=== PATIENT | male | born 1985 | race Caucasian/White ===

== ENCOUNTER 2021-08-28 19:21 | Inpatient (IN) | payer OTHER ==
[~2021-08-28] VITALS: Ht 165.1 cm; Wt 59.0 kg
--- NOTE | 2021-08-28 19:25 | NUR ---
pt bib ra from home pt states he has abd pain and high blood sugar.
--- NOTE | 2021-08-28 19:29 | NUR ---
Dr. Dawson at bedside for MSE.
[2021-08-28] MEDS ORDERED: IV NORMAL SALINE 1000 ML BAG IV ONE (19:30)
[2021-08-28] MEDS ORDERED: PANT40TA2 PO (19:34)
[2021-08-28] MEDS ORDERED: OXYC-128 PO (19:34)
[2021-08-28] MEDS ORDERED: INSU100C (19:34)
[2021-08-28] MEDS ORDERED: SWABABLE VALVE TRANSFER SET EA MC ONE (19:41)
[2021-08-28] MEDS ORDERED: IV NORMAL SALINE 250 ML IV ONE (19:41)
[2021-08-28] MEDS ORDERED: IOHEXOL 300MG/ML 100 ML INFUS..BTL ONE (19:41)
[2021-08-28] MEDS ORDERED: HYDROMORPHONE HCL 2 MG TABLET ONE (19:44)
[2021-08-28] MEDS ORDERED: diphenhydrAMINE 50 MG/1 ML VIAL ONE (19:44)
[2021-08-28] MEDS ORDERED: METOCLOPRAMIDE HCL 10 MG/2 ML VIAL ONE (19:44)
[2021-08-28] MEDS ORDERED: diphenhydrAMINE 50 MG/1 ML VIAL IV ONE (19:45)
[2021-08-28] MEDS ORDERED: HYDROMORPHONE HCL 2 MG TABLET PO ONE (19:45)
[2021-08-28] MEDS ORDERED: METOCLOPRAMIDE HCL 10 MG/2 ML VIAL IV ONE (19:45)
[2021-08-28 19:58] LABS: HEMATOCRIT 51.4 % (36.7-47.1); MEAN CORPUSCULAR HEMOGLOBIN 27.7 uug (23.8-33.4); MEAN CORPUSCULAR VOLUME 81.8 fL (73.0-96.2); PLATELET COUNT (AUTO) 325 K/uL (152-348)
--- NOTE | 2021-08-28 19:58 | NUR ---
pt called gave update on pt.
--- NOTE | 2021-08-28 20:06 | NUR ---
pt taken for cat scan.
[2021-08-28 20:18] LABS: BILIRUBIN,DIRECT 0.5 mg/dL (0.0-0.2); BILIRUBIN,TOTAL 2.5 mg/dL (0.2-1.0); CREATININE 1.5 mg/dL (0.6-1.3); POTASSIUM 4.6 mmol/L (3.5-5.1); TOTAL PROTEIN, SERUM 8.8 g/dL (6.4-8.2)
--- NOTE | 2021-08-28 20:28 | NUR ---
pt returned from cat scan.
[2021-08-28] MEDS ORDERED: INSULIN REGULAR, HUMAN 100 UNIT in IV NORMAL SALINE 99 ML IV PRN ×8 (20:30→23:30)
[2021-08-28] MEDS ORDERED: POTASSIUM CHLORIDE 20 MEQ TAB.PRT.SR PO ONE (20:30)
[2021-08-28] MEDS ORDERED: INSULIN REGULAR, HUMAN 300 UNIT/3 ML VIAL IV ONE (20:30)
[2021-08-28 20:35] LABS: AMYLASE 53 U/L (25-115)
--- NOTE | 2021-08-28 20:44 | NUR ---
nora from [facility] called gave requested information and gave the phone to Dr. Dawson for further info.
--- NOTE | 2021-08-28 20:48 | NUR ---
Dr. Dawson spoke with Ray Romero NP for orders.
[2021-08-28] MEDS ORDERED: POTASSIUM CHLORIDE 20 MEQ TAB.PRT.SR ONE (20:51)
[2021-08-28] MEDS ORDERED: INSULIN REGULAR, HUMAN 300 UNIT/3 ML VIAL ONE (20:52)
--- NOTE | 2021-08-28 21:00 | NUR ---
insulin 10 units given ivp per orders verfied by second rn Cristian Cadena.
[2021-08-28 21:04] LABS: ABG BASE EXCESS -17.2 mmol/L; ABG HCO3 8.8 mmol/L; ABG PCO2 23.3 mmHg (35.0-45.0); ABG PH 7.197 (7.350-7.450); ABG PO2 156.1 mmHg (75.0-100.0); ABG SITE RIGHT RADIAL; ABG TOTAL HEMOGLOBIN 16.3 G/dL (13.5-18.0); COHb 0.6 % (0.5-1.5); MetHb 0.5 % (0.0-1.5); O2Hb 97.9 % (94.0-97.0); VENT MODE Nasal Cannula
--- NOTE | 2021-08-28 21:05 | NUR ---
spoke with pt's fred at [phone] pt will be admitted to the icu.
--- NOTE | 2021-08-28 21:41 | NUR ---
report given to Eve DELEON pt to go to room icu 3.
[2021-08-28] MEDS ORDERED: BLOOD SUGAR DIAGNOSTIC 1 EACH STRIP VI SCH (22:00)
--- NOTE | 2021-08-28 22:07 | NUR ---
Patient up from ER. patient AAOX4. and able to assist with transferring from [facility] to bed with steady gait. Received pt. on insulin drip running at 8.8 units/hr.and NS running at 500cc/hr. Iv line patent Will continue with care plan.
--- NOTE | 2021-08-28 22:14 | NUR ---
pt transferred to room icu bed 3, via [place]ney with all belongings, Jackie Prado at bedside to receive the pt.
--- NOTE | 2021-08-28 22:15 | NUR ---
Attending Dr. Ray Mckeon called and notified of pt's arrival to the unit.
[2021-08-28 22:32] VITALS: BP 129/83
[2021-08-28] MEDS: BLOOD SUGAR DIAGNOSTIC 1 EACH STRIP VI SCH ×2 (22:58→23:06)
[2021-08-28 23:00] VITALS: BP 108/78
[2021-08-28] MEDS ORDERED: ACETAMINOPHEN 325 MG TABLET PO PRN (23:30)
[2021-08-28] MEDS ORDERED: IV NS 1000 ML 1,000 ML IV ONE (23:30)
[2021-08-29] VITALS (16 sets, daily range): BP systolic 97–135; BP diastolic 54–89
[2021-08-29] MEDS ORDERED: HYDROMORPHONE 2 MG/1 ML DISP.SYRIN ONE (00:04)
[2021-08-29] MEDS: HYDROMORPHONE 1 MG/1 ML DISP.SYRIN IV PRN ×10 (00:05→22:06)
[2021-08-29] MEDS: BLOOD SUGAR DIAGNOSTIC 1 EACH STRIP VI SCH ×12 (00:06→20:35)
[2021-08-29] MEDS: ENOXAPARIN SODIUM 40 MG/0.4 ML DISP.SYRIN SQ SCH ×2 (00:07→20:36)
[2021-08-29 01:34] LABS: CREATININE 1.3 mg/dL (0.6-1.3); MAGNESIUM 1.7 mg/dL (1.8-2.4); PHOSPHOROUS 2.1 mg/dL (2.5-4.9); POTASSIUM 4.5 mmol/L (3.5-5.1)
[2021-08-29 02:01] LABS: *BILIRUBIN,URIN NEGATIVE (NEGATIVE); *BLOOD, URINE NEGATIVE (NEGATIVE); *CLARITY,URINE CLEAR (CLEAR); *COLOR,URINE YELLOW (YELLOW); *KETONES,URINE 4+ (NEGATIVE); *UROBILINOGEN,URINE 0.2 E.U./dl (NORMAL); LEUKOCYTE ESTERASE ,URINE NEGATIVE (NEGATIVE); NITRITE, URINE NEGATIVE (NEGATIVE); UGLUCOSE 2+ (NEGATIVE)
[2021-08-29 02:15] LABS: RBC,URINE 0-3 /HPF (0-3); WBC,URINE NONE SEEN /HPF (0-3)
[2021-08-29 02:16] LABS: BACTERIA,URINE NONE SEEN /HPF (NONE SEEN); SQUAMOUS EPITHELIAL CELL,UR NONE SEEN /HPF (NONE SEEN)
[2021-08-29] MEDS: ONDANSETRON 4 MG/2 ML VIAL IV PRN ×4 (02:34→17:09)
[2021-08-29 04:31] LABS: CREATININE 1.1 mg/dL (0.6-1.3); MAGNESIUM 1.7 mg/dL (1.8-2.4); PHOSPHOROUS 1.8 mg/dL (2.5-4.9); POTASSIUM 4.3 mmol/L (3.5-5.1)
[2021-08-29] MEDS ORDERED: DEXTROSE 50% 50 ML DISP.SYRIN IV PRN ×2 (06:45→10:30)
[2021-08-29] MEDS ORDERED: INSULIN REGULAR, HUMAN 300 UNIT/3 ML VIAL SQ PRN (06:45)
[2021-08-29] MEDS ORDERED: MAGNESIUM OXIDE 400 MG TABLET PO ONE (07:00)
[2021-08-29] MEDS ORDERED: NEUTRA PHOS PACKET PO ONE (07:00)
[2021-08-29] MEDS: INSULIN LISPRO 300 UNIT/3 ML VIAL SQ SCH ×3 (07:30→16:30)
--- NOTE | 2021-08-29 07:30 | NUR ---
Bedside report given to rn. Constantino
[2021-08-29 07:36] LABS: CREATININE 1.1 mg/dL (0.6-1.3); MAGNESIUM 1.6 mg/dL (1.8-2.4); PHOSPHOROUS 2.2 mg/dL (2.5-4.9); POTASSIUM 4.5 mmol/L (3.5-5.1)
[2021-08-29] MEDS ORDERED: POTASSIUM PHOSPHATE MM 15 MMOL in IV NORMAL SALINE 250 ML IV ONE (08:00)
[2021-08-29] MEDS ORDERED: BLOOD SUGAR DIAGNOSTIC 1 EACH STRIP VI SCH ×2 (08:00→11:30)
--- NOTE | 2021-08-29 08:00 | NUR ---
Pt refused Lipshanae subq, he states "I know myself, I will crash". BS was 205. Will continue to monitor.
--- NOTE | 2021-08-29 08:00 | NUR ---
Received patient awake alert and oriented 4. Report pain in the abdomen area but denies SOB. On RA. IV on the left AC remains patent and intact. SR in the monitor. Insulin drip off. IVF running at the moment. Good urine output on the urinal, urine is clear and yellow. [facility]CI assessment done, no new skin issues noted. Safety initiated. Call light within reach. Will continue to monitor.
[2021-08-29] MEDS: POTASSIUM CHLORIDE 20 MEQ in IV NS 1000 ML 1,000 ML IV PRN ×2 (08:42→18:07)
[2021-08-29] MEDS: PANTOPRAZOLE SODIUM 40 MG VIAL IV SCH (08:42)
[2021-08-29] MEDS: MAGNESIUM SULFATE/D5W 100 ML IV SCH ×2 (08:43→10:36)
[2021-08-29] MEDS: INSULIN GLARGINE,HUM 300 UNITS/3 ML CARTRIDGE SQ SCH ×2 (09:11→20:36)
--- NOTE | 2021-08-29 09:45 | NUR ---
Spoke to Dr. Dang, new orders to transfer pt to Med Surg floor with accucheck AC HS and mild sliding scale. Pain is controlled with Dilaudid IVP. No emesis but 1 episode of nausea this AM. Will continue to monitor.
[2021-08-29] MEDS ORDERED: diphenhydrAMINE 50 MG CAPSULE PO PRN (11:30)
[2021-08-29] MEDS ORDERED: BACL10TA PO (11:52)
[2021-08-29] MEDS ORDERED: PREG50CA PO (11:52)
[2021-08-29] MEDS ORDERED: OXYC-121 PO (11:55)
[2021-08-29] MEDS: BACLOFEN 10 MG TABLET PO SCH (17:09)
--- NOTE | 2021-08-29 17:45 | NUR ---
Report given to Dallas RN and Deng RN. Transferred pt to rm 318 in stable condition.
--- NOTE | 2021-08-29 18:08 | NUR ---
RECEIVED REPORT FROM PANCHO TRAN OF CCU. PATIENT ARRIVED TO MS FLOOR ON A WHEELCHAIR. PATIENT IS AOX4. AMBULATORY. SELF CARE. VITALS WNL. SKIN INTACT. Addendum: 08/29/21 at 1859 by DEDRA JUSTIN RN LEFT IV 22G AC PATENT AND SUSAN
[2021-08-29] MEDS: INSULIN REGULAR, HUMAN 300 UNIT/3 ML VIAL SQ PRN (18:40)
--- NOTE | 2021-08-29 20:37 | NUR ---
Pt refusing regular insulin to cover his 210 blood glucose level. Pt states he only wants the lantus.
[2021-08-29] MEDS: diphenhydrAMINE 50 MG/1 ML VIAL IV PRN (22:33)
[2021-08-29] MEDS ORDERED: PIPERACILLIN SODIUM/TAZOBACTAM 3.375 G in IV DEXTROSE 5% 50 ML IV SCH (22:54)
[2021-08-29] MEDS ORDERED: PIPERACILLIN SODIUM/TAZO 3.375 GM VIAL ONE ×2 (23:10→23:11)
[2021-08-30] MEDS: HYDROMORPHONE 1 MG/1 ML DISP.SYRIN IV PRN ×6 (00:17→18:38)
[2021-08-30 04:42] VITALS: BP 115/73
--- NOTE | 2021-08-30 05:32 | NUR ---
Pt slept intermittently. No distress noted. Able to make needs known. Will endorse to day shift
[2021-08-30 06:26] LABS: HEMATOCRIT 31.9 % (36.7-47.1); MEAN CORPUSCULAR HEMOGLOBIN 28.1 uug (23.8-33.4); MEAN CORPUSCULAR VOLUME 77.5 fL (73.0-96.2); PLATELET COUNT (AUTO) 93 K/uL (152-348)
[2021-08-30] MEDS: POTASSIUM CHLORIDE 20 MEQ in IV NS 1000 ML 1,000 ML IV PRN (06:26)
[2021-08-30] MEDS: diphenhydrAMINE 50 MG/1 ML VIAL IV PRN ×2 (06:31→15:02)
[2021-08-30] MEDS: INSULIN LISPRO 300 UNIT/3 ML VIAL SQ SCH ×3 (06:38→16:53)
[2021-08-30] MEDS: BLOOD SUGAR DIAGNOSTIC 1 EACH STRIP VI SCH ×3 (06:39→16:41)
[2021-08-30] MEDS: PIPERACILLIN SODIUM/TAZOBACTAM 3.375 G in IV DEXTROSE 5% 100 ML IV SCH ×2 (06:55→15:03)
[2021-08-30 07:13] LABS: BILIRUBIN,TOTAL 0.9 mg/dL (0.2-1.0); MAGNESIUM 1.6 mg/dL (1.8-2.4); POTASSIUM 3.8 mmol/L (3.5-5.1); TOTAL PROTEIN, SERUM 5.6 g/dL (6.4-8.2)
[2021-08-30] MEDS: PANTOPRAZOLE SODIUM 40 MG VIAL IV SCH (08:01)
--- NOTE | 2021-08-30 08:10 | NUR ---
Nsg: Received patient lying in bed. patient awake alert and oriented 4. c/o pain in the abdomen area but denies SOB. On RA. IV on the left AC remains patent and intact. IVF running at the moment. urine is clear and yellow. no new skin issues noted. Safety initiated. Call light within reach. Will continue to monitor. call light w/in reach.
[2021-08-30] MEDS ORDERED: PANTOPRAZOLE SODIUM 40 MG TABLET.DR PO SCH (09:00)
[2021-08-30] MEDS: BACLOFEN 10 MG TABLET PO SCH ×2 (09:05→17:21)
[2021-08-30] MEDS: INSULIN REGULAR, HUMAN 300 UNIT/3 ML VIAL SQ PRN ×2 (09:09→16:55)
[2021-08-30] MEDS ORDERED: NEUTRA PHOS PACKET PO ONE (11:15)
[2021-08-30] MEDS ORDERED: MAGNESIUM OXIDE 400 MG TABLET PO ONE (11:15)
[2021-08-30 11:36] VITALS: BP 113/60
--- NOTE | 2021-08-30 11:47 | NUR ---
blood sugar 87 mg/dl. no regular insulin given.
[2021-08-30] MEDS ORDERED: GLUCERNA SHAKE 237 ML CAN PO SCH (12:00)
[2021-08-30] MEDS ORDERED: PIPERACILLIN SODIUM/TAZOBACTAM 3.375 G in IV DEXTROSE 5% 50 ML IV SCH (14:00)
[2021-08-30 16:43] VITALS: BP 125/89
[2021-08-30] MEDS ORDERED: Insulin Glargine,Hum SQ (18:43)
[2021-08-30] MEDS ORDERED: METR500T PO (18:43)
[2021-08-30] MEDS ORDERED: OXYC-133 PO (18:43)
[2021-08-30] MEDS ORDERED: LEVO500T90 PO (18:43)
--- NOTE | 2021-08-30 18:47 | NUR ---
remain calm and cooperative with meds and care. continue ask for meds every 3 hrs. in no acute distress at this time. call light w/in reach.
[2021-08-30 20:00] VITALS: BP 139/93
--- NOTE | 2021-08-30 20:20 | NUR ---
PATIENT DISCHARGED TO HOME IN STABLE CONDITION. PICKED UP BY GIRLFRIEND. IV AND WRIST BAND REMOVED. ALL DISCHARGE INSTRUCTIONS GIVEN AND BELONGINGS SIGNED BY PATIENT.
[2021-08-30] MEDS ORDERED: INSULIN GLARGINE,HUM 300 UNITS/3 ML CARTRIDGE SQ SCH (21:00)
== END 2021-08-30 21:31 | disposition home or self-care (01) | DRG 420 ==
LOC: ER 19:23 → CCU 21:43 → MEDSURG3 08-29 18:07
PROVIDERS: ADMIT Nurse Practitioner Acute Care; ATTEND Internal Medicine
DX: E10.10 Type 1 diabetes mellitus with ketoacidosis without coma (principal); N17.0 Acute kidney failure with tubular necrosis; E10.40 Type 1 diabetes mellitus with diabetic neuropathy, unspecified; A04.9 Bacterial intestinal infection, unspecified; E87.1 Hypo-osmolality and hyponatremia; E86.1 Hypovolemia; E89.1 Postprocedural hypoinsulinemia; Z79.4 Long term (current) use of insulin; Z90.411 Acquired partial absence of pancreas; G89.4 Chronic pain syndrome; Z90.49 Acquired absence of other specified parts of digestive tract; Z87.891 Personal history of nicotine dependence; E80.6 Other disorders of bilirubin metabolism; D72.829 Elevated white blood cell count, unspecified; E86.9 Volume depletion, unspecified; Z20.822 Contact with and (suspected) exposure to COVID-19
CPT/HCPCS: 36415; 36600; 71045; 82803; 83605; 83690; 83735; 84100; 85025; 85730; 87040; 93005; A4663; C9113; G0378; J1170; J1200; J1650; J1815; J2405; J2543; J2765; J3475; J3480; J3490; J7040; Q0163; Q9967

== ENCOUNTER 2022-06-26 12:15 | Emergency (ER) | payer OTHER ==
[~2022-06-26] VITALS: Ht 170.2 cm; Wt 63.5 kg
[~2022-06-26 12:15] MED LIST: BACL10TA PO; Insulin Glargine,Hum SQ; LEVO500T90 PO; METR500T PO; OXYC-133 PO; PANT40TA2 PO; PREG50CA PO
--- NOTE | 2022-06-26 12:28 | NUR ---
Patient seen by Dr Dawson. Will continue to monitor
[2022-06-26] MEDS ORDERED: ONDANSETRON 4 MG/2 ML VIAL IV ONE (12:30)
[2022-06-26] MEDS ORDERED: IV NORMAL SALINE 1000 ML BAG IV ONE ×2 (12:30→14:00)
[2022-06-26] MEDS ORDERED: INSULIN REGULAR, HUMAN 300 UNIT/3 ML VIAL IV ONE (12:30)
[2022-06-26] MEDS ORDERED: MORPHINE SULFATE 2 MG/1 ML DISP.SYRIN IV ONE (12:30)
[2022-06-26] MEDS ORDERED: MORPHINE SULFATE 4 MG/1 ML DISP.SYRIN ONE (12:43)
[2022-06-26] MEDS ORDERED: ONDANSETRON 4 MG/2 ML VIAL ONE (12:44)
[2022-06-26] MEDS ORDERED: INSULIN REGULAR, HUMAN 300 UNIT/3 ML VIAL ONE (12:55)
[2022-06-26 13:08] LABS: SITE, VBG RIGHT BRACHIAL
[2022-06-26 13:27] LABS: BILIRUBIN,DIRECT 0.4 mg/dL (0.0-0.2); BILIRUBIN,TOTAL 2.5 mg/dL (0.2-1.0); CREATININE 1.1 mg/dL (0.6-1.3); POTASSIUM 3.9 mmol/L (3.5-5.1); TOTAL PROTEIN, SERUM 8.9 g/dL (6.4-8.2)
[2022-06-26 13:28] LABS: HEMATOCRIT 46.1 % (36.7-47.1); MEAN CORPUSCULAR HEMOGLOBIN 27.4 uug (23.8-33.4); MEAN CORPUSCULAR VOLUME 79.9 fL (73.0-96.2); PLATELET COUNT (AUTO) 136 K/uL (152-348)
--- NOTE | 2022-06-26 13:52 | NUR ---
Informed MD of critical lab values Glucose-392, and lactic acid-2.7. Was informed of values by Richi (lab). Safety measures in place. Will continue to monitor.
[2022-06-26] MEDS ORDERED: ONDA4TAB5 PO (14:10)
[2022-06-26] MEDS ORDERED: AMOX-430 PO (14:27)
[2022-06-26] MEDS ORDERED: HYDROMORPHONE 1 MG/1 ML DISP.SYRIN IV ONE (14:45)
[2022-06-26] MEDS ORDERED: HYDROMORPHONE 1 MG/1 ML DISP.SYRIN ONE (14:47)
--- NOTE | 2022-06-26 17:03 | NUR ---
Patient discharged to home in stable condition. Written and verbal after care instructions given. Patient verbalizes understanding of instructions. Provided Pt with copy of imaging and labs. Saw patient leave in passenger seat of car with patient's significant other driving. Stressed follow up or return to ER for worsening s/s.
[2022-06-26 17:06] VITALS: BP 164/110
== END 2022-06-26 17:07 | disposition home or self-care (01) ==
LOC: ER 12:15
DX: K52.9 Noninfective gastroenteritis and colitis, unspecified (principal); E86.0 Dehydration; E11.65 Type 2 diabetes mellitus with hyperglycemia; E87.20 Acidosis, unspecified; F12.10 Cannabis abuse, uncomplicated; F17.210 Nicotine dependence, cigarettes, uncomplicated; Z90.49 Acquired absence of other specified parts of digestive tract; Z88.1 Allergy status to other antibiotic agents; Z91.018 Allergy to other foods; Z79.4 Long term (current) use of insulin; Z79.2 Long term (current) use of antibiotics; Z79.899 Other long term (current) drug therapy
CPT/HCPCS: 99285; 74176; 96374; 96361; 96375; 80076; 80048; 82009; 83690; 85025; 87040 ×2; 93005; 83605 ×2; 36600; J2405; J1170; J2270; J1815; J7040 ×2; 36415; A4663

== ENCOUNTER 2023-08-19 22:01 | Emergency (ER) | payer OTHER ==
[~2023-08-19] VITALS: Ht 175.3 cm; Wt 81.6 kg
[~2023-08-19 22:01] MED LIST changes: +AMOX-430 PO; +ONDA4TAB5 PO
[2023-08-19] MEDS ORDERED: METOCLOPRAMIDE HCL 10 MG/2 ML VIAL ONE (23:11)
[2023-08-19] MEDS ORDERED: diphenhydrAMINE 50 MG/1 ML VIAL ONE (23:11)
[2023-08-19] MEDS ORDERED: HYDROMORPHONE 1 MG/1 ML DISP.SYRIN ONE (23:12)
[2023-08-19] MEDS: diphenhydrAMINE 50 MG/1 ML VIAL IV ONE (23:19)
[2023-08-19] MEDS: METOCLOPRAMIDE HCL 10 MG/2 ML VIAL IV ONE (23:20)
[2023-08-19] MEDS: HYDROMORPHONE 1 MG/1 ML DISP.SYRIN IV ONE (23:20)
[2023-08-19 23:28] LABS: BASOPHILS # (AUTO) 0.2 K/UL (0.0-0.2); BASOPHILS % (AUTO) 1.5 % (0.0-2.0); DIFFERENTIAL COMMENT 0; EOSINOPHILS # (AUTO) 0.2 K/uL (0.0-0.7); EOSINOPHILS % (AUTO) 1.1 % (0.0-7.0); HEMATOCRIT 51.9 % (36.7-47.1); HEMOGLOBIN 17.6 g/dL (12.5-16.3); LYMPHOCYTES # (AUTO) 1.1 K/uL (0.8-4.8); LYMPHOCYTES % (AUTO) 7.7 % (20.5-51.5); MEAN CORPUSCULAR HEMOGLOBIN 26.4 uug (23.8-33.4); MEAN CORPUSCULAR HGB CONC 34 g/dL (32.5-36.3); MEAN CORPUSCULAR VOLUME 77.7 fL (73.0-96.2); MONOCYTES # (AUTO) 0.7 K/uL (0.1-1.30); MONOCYTES % (AUTO) 4.7 % (0.0-11.0); NEUTROPHILS # (AUTO) 11.7 K/uL (1.8-8.9); PLATELET COUNT (AUTO) 265 K/uL (152-348); RED CELL DISTRIBUTION WIDTH 14.4 % (12.1-16.2); WHITE BLOOD COUNT (AUTO) 13.8 K/uL (3.6-10.2)
[2023-08-19 23:29] LABS: RED BLOOD CELL COUNT(AUTO) 6.68 MIL/uL (4.06-5.63)
[2023-08-19 23:46] LABS: CALCIUM 9.9 mg/dL (8.5-10.1); CARBON DIOXIDE 21 mmol/L (21-32); CHLORIDE 88 mmol/L (98-107); CREATININE 1.9 mg/dL (0.6-1.3); GLUCOSE 338 mg/dL (74-106); POTASSIUM 4.1 mmol/L (3.5-5.1); SODIUM SERUM 126 mmol/L (136-145); UREA NITROGEN, BLOOD 52 mg/dL (7-18)
[2023-08-19 23:53] LABS: ALANINE AMINOTRANSFERASE 12 U/L (16-63); ALBUMIN 4.7 g/dL (3.4-5.0); ALKALINE PHOSPHATASE 127 U/L (50-136); ASPARTATE AMINOTRANSFERASE < 5 U/L (15-37); BILIRUBIN,DIRECT 0.6 mg/dL (0.0-0.2); BILIRUBIN,TOTAL 2.6 mg/dL (0.2-1.0); TOTAL PROTEIN, SERUM 8.6 g/dL (6.4-8.2)
[2023-08-20] MEDS: IV NORMAL SALINE 1000 ML BAG IV ONE (00:06)
[2023-08-20 00:43] LABS: LIPASE < 10 U/L (16-77)
[2023-08-20] MEDS ORDERED: ONDANSETRON 4 MG/2 ML VIAL ONE (01:00)
[2023-08-20] MEDS ORDERED: HYDROMORPHONE 1 MG/1 ML DISP.SYRIN ONE ×3 (01:00→04:14)
[2023-08-20] MEDS: HYDROMORPHONE 1 MG/1 ML DISP.SYRIN IV ONE ×3 (01:08→04:18)
[2023-08-20] MEDS: ONDANSETRON 4 MG/2 ML VIAL IV ONE (01:08)
[2023-08-20 04:12] VITALS: O2SAT 98
== END 2023-08-20 04:28 | disposition short-term general hospital (02) ==
LOC: ER 22:02
DX: E86.0 Dehydration (principal); N17.0 Acute kidney failure with tubular necrosis; R07.89 Other chest pain; E11.9 Type 2 diabetes mellitus without complications; F17.210 Nicotine dependence, cigarettes, uncomplicated; Z90.49 Acquired absence of other specified parts of digestive tract; Z88.1 Allergy status to other antibiotic agents; Z91.018 Allergy to other foods; Z79.4 Long term (current) use of insulin; Z79.2 Long term (current) use of antibiotics; Z79.899 Other long term (current) drug therapy
CPT/HCPCS: 99291; 74176; 96374; 96375 ×2; 80076; 80048; 83690; 85025; 85730; 84484; 36415; 93005; 71045; 96361; 96376; J1200; J2765; J1170 ×4; J7040 ×2; J2405; A4606; A4663

== ENCOUNTER 2023-11-02 13:24 | Emergency (ER) | payer OTHER ==
[~2023-11-02] VITALS: Ht 170.2 cm; Wt 81.6 kg
[2023-11-02] MEDS ORDERED: [UNRECOGNIZED DRUG - OTHER] PO (13:56)
[2023-11-02 14:27] LABS: BASOPHILS % (AUTO) 0.3 % (0.0-2.0); EOSINOPHILS % (AUTO) 0.3 % (0.0-7.0); HEMATOCRIT 47.2 % (36.7-47.1); HEMOGLOBIN 16.1 g/dL (12.5-16.3); LYMPHOCYTES # (AUTO) 1.6 K/uL (0.8-4.8); MEAN CORPUSCULAR HEMOGLOBIN 26.6 uug (23.8-33.4); MEAN CORPUSCULAR HGB CONC 34 g/dL (32.5-36.3); MEAN CORPUSCULAR VOLUME 77.9 fL (73.0-96.2); MONOCYTES # (AUTO) 0.6 K/uL (0.1-1.30); MONOCYTES % (AUTO) 5.7 % (0.0-11.0); NEUTROPHILS # (AUTO) 7.6 K/uL (1.8-8.9); NEUTROPHILS % (AUTO) 77.7 % (38.5-71.5); PLATELET COUNT (AUTO) 270 K/uL (152-348); RED BLOOD CELL COUNT(AUTO) 6.05 MIL/uL (4.06-5.63); RED CELL DISTRIBUTION WIDTH 14.4 % (12.1-16.2); WHITE BLOOD COUNT (AUTO) 9.8 K/uL (3.6-10.2)
[2023-11-02 14:28] LABS: DIFFERENTIAL COMMENT 1
[2023-11-02] MEDS ORDERED: METOCLOPRAMIDE HCL 10 MG/2 ML VIAL ONE (14:28)
[2023-11-02] MEDS ORDERED: diphenhydrAMINE 50 MG/1 ML VIAL ONE (14:28)
[2023-11-02] MEDS ORDERED: HYDROMORPHONE 1 MG/1 ML DISP.SYRIN ONE (14:28)
[2023-11-02 14:33] LABS: CARBON DIOXIDE 30 mmol/L (21-32); CHLORIDE 91 mmol/L (98-107); CREATININE 1.5 mg/dL (0.6-1.3); POTASSIUM 4.6 mmol/L (3.5-5.1); SODIUM SERUM 133 mmol/L (136-145); UREA NITROGEN, BLOOD 23 mg/dL (7-18)
[2023-11-02 14:34] LABS: GLUCOSE 477 mg/dL (74-106)
[2023-11-02] MEDS: METOCLOPRAMIDE HCL 10 MG/2 ML VIAL IV ONE (14:35)
[2023-11-02] MEDS: diphenhydrAMINE 50 MG/1 ML VIAL IV ONE (14:35)
[2023-11-02] MEDS: IV NORMAL SALINE 1000 ML BAG IV ONE (14:36)
[2023-11-02] MEDS: HYDROMORPHONE 1 MG/1 ML DISP.SYRIN IV ONE (14:36)
[2023-11-02 14:38] LABS: ALANINE AMINOTRANSFERASE 14 U/L (16-63); ALBUMIN 4.4 g/dL (3.4-5.0); ALKALINE PHOSPHATASE 151 U/L (50-136); ASPARTATE AMINOTRANSFERASE < 5 U/L (15-37); BILIRUBIN,DIRECT 0.3 mg/dL (0.0-0.2); BILIRUBIN,TOTAL 1.4 mg/dL (0.2-1.0); LIPASE 36 U/L (16-77); TOTAL PROTEIN, SERUM 8.4 g/dL (6.4-8.2)
[2023-11-02] MEDS ORDERED: INSULIN REGULAR, HUMAN 1000 UNIT/10 ML VIAL ONE (14:49)
[2023-11-02] MEDS: INSULIN REGULAR, HUMAN 1000 UNIT/10 ML VIAL SQ ONE ×2 (14:53→17:05)
[2023-11-02] MEDS ORDERED: FAMO20TA8 PO (16:57)
[2023-11-02 17:10] VITALS: BP 112/62; TEMP 98; O2SAT 100
== END 2023-11-02 17:13 | disposition home or self-care (01) ==
LOC: ER 13:25
DX: R10.33 Periumbilical pain (principal); E11.40 Type 2 diabetes mellitus with diabetic neuropathy, unspecified; E11.65 Type 2 diabetes mellitus with hyperglycemia; F17.200 Nicotine dependence, unspecified, uncomplicated; Z90.49 Acquired absence of other specified parts of digestive tract; Z79.899 Other long term (current) drug therapy; Z98.890 Other specified postprocedural states; Z60.2 Problems related to living alone; Z88.1 Allergy status to other antibiotic agents
CPT/HCPCS: 99285; 74176; 96374; 96375; 96361; 80076; 80048; 82962; 83690; 85025; 36415; 93005; 96372; J1200; J2765; J1170; J1815; J7040; A4606; A4663

== ENCOUNTER 2023-11-18 13:05 | Inpatient (IN) | payer OTHER ==
[~2023-11-18] VITALS: Ht 170.2 cm; Wt 77.1 kg
[~2023-11-18 13:05] MED LIST changes: +FAMO20TA8 PO; +[UNRECOGNIZED DRUG - OTHER] PO
--- NOTE | 2023-11-18 13:38 | NUR ---
PT IS IN ROOM #2B. DR STARKEY EVALUATED THE PT.
[2023-11-18] MEDS ORDERED: diphenhydrAMINE 50 MG/1 ML VIAL ONE (13:49)
[2023-11-18] MEDS ORDERED: HYDROMORPHONE 1 MG/1 ML DISP.SYRIN ONE ×2 (13:49→15:29)
[2023-11-18] MEDS ORDERED: METOCLOPRAMIDE HCL 10 MG/2 ML VIAL ONE (13:50)
[2023-11-18] MEDS: HYDROMORPHONE 1 MG/1 ML DISP.SYRIN IV ONE ×2 (13:55→15:33)
[2023-11-18] MEDS: diphenhydrAMINE 50 MG/1 ML VIAL IV ONE (13:55)
[2023-11-18] MEDS: IV NORMAL SALINE 1000 ML BAG IV ONE (13:56)
[2023-11-18] MEDS: METOCLOPRAMIDE HCL 10 MG/2 ML VIAL IV ONE (13:56)
[2023-11-18 14:28] LABS: ALBUMIN 4.1 g/dL (3.4-5.0); BILIRUBIN,DIRECT 0.3 mg/dL (0.0-0.2); BILIRUBIN,TOTAL 2.1 mg/dL (0.2-1.0); CALCIUM 9.3 mg/dL (8.5-10.1); CREATININE 1.5 mg/dL (0.6-1.3); POTASSIUM 4.5 mmol/L (3.5-5.1); TOTAL PROTEIN, SERUM 7.9 g/dL (6.4-8.2)
[2023-11-18 14:30] LABS: BASOPHILS % (AUTO) 0.1 % (0.0-2.0); EOSINOPHILS % (AUTO) 0.1 % (0.0-7.0); HEMATOCRIT 44.9 % (36.7-47.1); HEMOGLOBIN 14.8 g/dL (12.5-16.3); LYMPHOCYTES # (AUTO) 0.8 K/uL (0.8-4.8); MEAN CORPUSCULAR HEMOGLOBIN 26.7 uug (23.8-33.4); MEAN CORPUSCULAR HGB CONC 33 g/dL (32.5-36.3); MEAN CORPUSCULAR VOLUME 80.9 fL (73.0-96.2); MONOCYTES # (AUTO) 0.7 K/uL (0.1-1.30); MONOCYTES % (AUTO) 5.2 % (0.0-11.0); NEUTROPHILS # (AUTO) 11.9 K/uL (1.8-8.9); NEUTROPHILS % (AUTO) 88.6 % (38.5-71.5); PLATELET COUNT (AUTO) 209 K/uL (152-348); RED BLOOD CELL COUNT(AUTO) 5.54 MIL/uL (4.06-5.63); RED CELL DISTRIBUTION WIDTH 14.9 % (12.1-16.2); WHITE BLOOD COUNT (AUTO) 13.4 K/uL (3.6-10.2)
[2023-11-18 14:32] LABS: DIFFERENTIAL COMMENT 1
[2023-11-18] MEDS ORDERED: INSULIN REGULAR, HUMAN 1000 UNIT/10 ML VIAL ONE (15:08)
[2023-11-18 15:10] LABS: *BILIRUBIN,URIN 1+ (NEGATIVE); *BLOOD, URINE NEGATIVE (NEGATIVE); *CLARITY,URINE CLEAR (CLEAR); *COLOR,URINE YELLOW (YELLOW); *KETONES,URINE 3+ (NEGATIVE); *PROTEIN,URINE 1+ (NEGATIVE); *UROBILINOGEN,URINE 0.2 E.U./dl (NORMAL); LEUKOCYTE ESTERASE ,URINE NEGATIVE (NEGATIVE); NITRITE, URINE NEGATIVE (NEGATIVE); PH,URINE 5.5 (5.0-8.0); UGLUCOSE 2+ (NEGATIVE)
[2023-11-18] MEDS: INSULIN REGULAR, HUMAN 1000 UNIT/10 ML VIAL SQ ONE (15:11)
[2023-11-18] MEDS ORDERED: LORAZEPAM 2 MG/1 ML VIAL ONE (15:34)
[2023-11-18] MEDS ORDERED: PROCHLORPERAZINE EDISYLATE 10 MG/2 ML VIAL ONE (15:35)
[2023-11-18] MEDS: LORAZEPAM 2 MG/1 ML VIAL IV ONE (15:40)
[2023-11-18] MEDS: PROCHLORPERAZINE EDISYLATE 10 MG/2 ML VIAL IV ONE (15:41)
[2023-11-18 15:57] LABS: CALCIUM 8.7 mg/dL (8.5-10.1); CREATININE 1.6 mg/dL (0.6-1.3); POTASSIUM 4.6 mmol/L (3.5-5.1)
[2023-11-18 16:29] LABS: ABG BASE EXCESS -12.1 mmol/L (-2.0-3.0); ABG HCO3 14.4 mmol/L (21.0-28.0); ABG PCO2 34.9 mmHg (35.0-48.0); ABG PH 7.232 (7.350-7.450); ABG PO2 95.8 mmHg (83.0-108.0); ABG SITE RIGHT RADIAL; ABG TOTAL HEMOGLOBIN 14.7 G/dL (13.5-17.5); AaDO2 96.1 mmHg; COHb 0.7 % (0.5-1.5); MetHb 0.3 % (0.0-1.5); O2Hb 95.5 % (94.0-98.0)
[2023-11-18 16:29] LABS: BACTERIA,URINE NONE SEEN /HPF (NONE SEEN); RBC,URINE NONE SEEN /HPF (0-3); SQUAMOUS EPITHELIAL CELL,UR FEW /HPF (NONE SEEN); WBC,URINE 0-3 /HPF (0-3)
[2023-11-18] MEDS: INSULIN REGULAR, HUMAN 1000 UNIT/10 ML VIAL IV ONE (16:29)
[2023-11-18] MEDS ORDERED: INSULIN REGULAR, HUMAN 100 UNIT in IV NORMAL SALINE 99 ML IV ONE (17:00)
[2023-11-18] MEDS: BLOOD SUGAR DIAGNOSTIC 1 EACH STRIP VI SCH (17:26)
[2023-11-18] MEDS: INSULIN REGULAR, HUMAN 100 UNIT in IV NORMAL SALINE 100 ML IV PRN (17:29)
[2023-11-18 18:02] LABS: CALCIUM 9.2 mg/dL (8.5-10.1); CREATININE 1.6 mg/dL (0.6-1.3); MAGNESIUM 2.3 mg/dL (1.8-2.4); POTASSIUM 3.9 mmol/L (3.5-5.1)
[2023-11-18] MEDS ORDERED: HYDR-3980 PO (18:10)
[2023-11-18] MEDS ORDERED: TIZA4TAB5 PO (18:11)
[2023-11-18] MEDS ORDERED: FAMO20TA8 PO (18:11)
--- NOTE | 2023-11-18 18:11 | NUR ---
EXTRNAL FUNCTION REVIWED WITH PT FOR MED RECON. Addendum: 11/18/23 at 1814 by JENNIFER PT MENTIONS THAT HE IS ON HUMOLOG PUMP AND THATS THE ONLY WAY TO CONTROL BS
[2023-11-18] MEDS ORDERED: LIPA1CAP8 PO (18:14)
--- NOTE | 2023-11-18 19:15 | NUR ---
REPORT RECEIEVED FROM AZAEL DELEON.
--- NOTE | 2023-11-18 19:30 | NUR ---
PT'S ACCU CHECK DONE, BS - 210, NO CHANGE IN INSULIN GTT.
--- NOTE | 2023-11-18 19:40 | NUR ---
PT TAKEN TO CT VIA RNEMO.
--- NOTE | 2023-11-18 20:40 | NUR ---
REPORT GIVEN TO XIAO DELEON.
--- NOTE | 2023-11-18 20:55 | NUR ---
ACCU CHECK DONE , BS - 216. NO CHANGE IN INSULIN GTT.
--- NOTE | 2023-11-18 21:00 | NUR ---
Pt. admitted to CCU 3 , under care of Dr. PRECIADO Belongs List completed
[2023-11-18] MEDS ORDERED: IV 1/2NS 1000 ML 1,000 ML IV PRN (21:15)
[2023-11-18] MEDS ORDERED: ACETAMINOPHEN 325 MG TABLET PO PRN (21:15)
[2023-11-18] MEDS ORDERED: ONDANSETRON 4 MG/2 ML VIAL IV PRN (21:15)
[2023-11-18 22:00] VITALS: TEMP 97.7
[2023-11-18] MEDS ORDERED: PIPERACILLIN SODIUM/TAZOBACTAM 3.375 G in IV DEXTROSE 5% 50 ML IV SCH (22:00)
[2023-11-18] MEDS: HYDROCODONE/APAP 5-325MG TABLET PO PRN (22:09)
[2023-11-18] MEDS ORDERED: PIPERACILLIN/TAZOBACTAM/D5W 50 ML IV ONE (22:30)
[2023-11-18 23:00] VITALS: BP 107/79
[2023-11-18] MEDS ORDERED: IV D5W-0.45% NS +20 KCL 1,000 ML IV ONE (23:02)
[2023-11-18] MEDS: PIPERACILLIN SODIUM IV SCH (23:17)
[2023-11-18] MEDS: NORMAL SALINE IV SCH (23:17)
[2023-11-18] MEDS: TAZOBACTAM IV SCH (23:17)
[2023-11-18] MEDS: IV D5W-0.45% NS +20 KCL 1,000 ML IV PRN (23:22)
[2023-11-18 23:36] LABS: CALCIUM 8.9 mg/dL (8.5-10.1); CREATININE 1.4 mg/dL (0.6-1.3); POTASSIUM 3.8 mmol/L (3.5-5.1)
[2023-11-19] VITALS (15 sets, daily range): BP systolic 111–181; BP diastolic 65–100; TEMP 97.8–98.3; O2SAT 96–100
[2023-11-19] MEDS ORDERED: POTASSIUM CHLORIDE 50 ML ONE (00:14)
[2023-11-19] MEDS ORDERED: POTASSIUM CHLORIDE 50 ML IV SCH (00:30)
[2023-11-19] MEDS: POTASSIUM CHLORIDE 50 ML IV SCH (00:44)
[2023-11-19] MEDS: HYDROMORPHONE 1 MG/1 ML DISP.SYRIN IV PRN (03:05)
[2023-11-19 03:35] LABS: CALCIUM 8.8 mg/dL (8.5-10.1); CREATININE 1.3 mg/dL (0.6-1.3); POTASSIUM 3.9 mmol/L (3.5-5.1)
[2023-11-19] MEDS ORDERED: INSULIN GLARGINE,HUM 300 UNITS/3 ML CARTRIDGE SQ ONE (04:19)
[2023-11-19] MEDS ORDERED: PIPERACILLIN/TAZOBACTAM/D5W 50 ML IV ONE (04:19)
[2023-11-19] MEDS ORDERED: DEXTROSE 50% 50 ML DISP.SYRIN IV PRN (04:45)
[2023-11-19] MEDS: INSULIN GLARGINE,HUM 300 UNITS/3 ML CARTRIDGE SQ ONE (04:59)
--- NOTE | 2023-11-19 07:00 | NUR ---
RECEIVED REPORT FROM PAUL DELEON..PATIENT ON ROOM AIR IN NO DISTRESS AT THIS TIME,PIV PATENT AND INTACT,VOIDED TO 400 ML OF DARK PEDRO URINE FARM BOSS SHOWS SR WITH OCCASIONAL PAC AND PVC.0900 C/O OF ABDOMINAL PAIN ,MEDICATED WITH DILAUDID 0.5 MG GIVEN WITH RELIEF IN 30 MIN.REFUSED TO EAT AT THIS TIME,JUST TOOK ORANGE JUICE AND WATER.1100 ASLEEP AT LONG INTERVALS.1200 LINDA MINA HERE,LEFT ORDERS CARRIED.1340 C/O OF GENERALIZED PAIN ,MEDICATED WITH HYDROCODONE.
[2023-11-19] MEDS: PANTOPRAZOLE SODIUM 40 MG TABLET.DR PO SCH (07:07)
[2023-11-19 07:35] LABS: BASOPHILS % (AUTO) 0.4 % (0.0-2.0); EOSINOPHILS % (AUTO) 0.6 % (0.0-7.0); HEMATOCRIT 38.2 % (36.7-47.1); HEMOGLOBIN 12.8 g/dL (12.5-16.3); LYMPHOCYTES # (AUTO) 1.4 K/uL (0.8-4.8); LYMPHOCYTES % (AUTO) 21.2 % (20.5-51.5); MEAN CORPUSCULAR HEMOGLOBIN 27.2 uug (23.8-33.4); MEAN CORPUSCULAR HGB CONC 34 g/dL (32.5-36.3); MEAN CORPUSCULAR VOLUME 81.1 fL (73.0-96.2); MONOCYTES # (AUTO) 0.6 K/uL (0.1-1.30); MONOCYTES % (AUTO) 8.4 % (0.0-11.0); NEUTROPHILS # (AUTO) 4.6 K/uL (1.8-8.9); NEUTROPHILS % (AUTO) 69.4 % (38.5-71.5); PLATELET COUNT (AUTO) 132 K/uL (152-348); RED BLOOD CELL COUNT(AUTO) 4.71 MIL/uL (4.06-5.63); RED CELL DISTRIBUTION WIDTH 15.1 % (12.1-16.2); WHITE BLOOD COUNT (AUTO) 6.7 K/uL (3.6-10.2)
[2023-11-19 07:47] LABS: DIFFERENTIAL COMMENT 1
[2023-11-19] MEDS ORDERED: PROTEASE PO SCH (08:00)
[2023-11-19] MEDS ORDERED: AMYLASE PO SCH (08:00)
[2023-11-19] MEDS ORDERED: IV NS 1000 ML 1,000 ML IV PRN (08:00)
[2023-11-19] MEDS ORDERED: LIPASE PO SCH (08:00)
[2023-11-19 08:04] LABS: ALBUMIN 3.6 g/dL (3.4-5.0); BILIRUBIN,TOTAL 1.8 mg/dL (0.2-1.0); CALCIUM 8.9 mg/dL (8.5-10.1); CREATININE 1.2 mg/dL (0.6-1.3); MAGNESIUM 1.9 mg/dL (1.8-2.4); PHOSPHOROUS 1.9 mg/dL (2.5-4.9); POTASSIUM 3.8 mmol/L (3.5-5.1); TOTAL PROTEIN, SERUM 6.7 g/dL (6.4-8.2)
[2023-11-19] MEDS: BLOOD SUGAR DIAGNOSTIC 1 EACH STRIP VI SCH (08:30)
[2023-11-19] MEDS: INSULIN REGULAR, HUMAN 1000 UNIT/10 ML VIAL SQ PRN (08:42)
[2023-11-19] MEDS: IV NS 1000 ML 1,000 ML IV PRN (08:49)
[2023-11-19] MEDS ORDERED: DOCU100T2 PO (09:24)
[2023-11-19] MEDS ORDERED: INSU100V36 SQ (09:24)
[2023-11-19] MEDS: NEUTRA PHOS PACKET PO ONE (12:10)
[2023-11-19] MEDS: CIPROFLOXACIN HCL 250 MG TABLET PO SCH (12:10)
[2023-11-19] MEDS: DICYCLOMINE HCL 20 MG TABLET PO SCH (12:10)
[2023-11-19] MEDS: METRONIDAZOLE 500 MG TABLET PO SCH (13:41)
[2023-11-19] MEDS ORDERED: PIPERACILLIN SODIUM/TAZOBACTAM 3.375 G in IV DEXTROSE 5% 100 ML IV SCH (14:00)
--- NOTE | 2023-11-19 15:00 | NUR ---
visitor at bedside.pain level 0/10.
--- NOTE | 2023-11-19 17:00 | NUR ---
ate consistent carbohydrate diet with good apetite.aspiration precaution observed,tolerated well.
--- NOTE | 2023-11-19 17:11 | NUR ---
A call from Charge R.N third floor nurse receiving this pt. will be [facility] "I will call when beds are available and cleaned.
--- NOTE | 2023-11-19 17:45 | NUR ---
1754 medicated with norco for c/o abd.pain.piv daniel patent and intact,monitor show sr.,remain on room air with 02 saturation of 100%.181 complete condition report givfen to [place].
--- NOTE | 2023-11-19 18:00 | NUR ---
A call from Charge nurse pt. will be fatuma to room 321 [facility] will be receiving pt. Charge was requested to have Nia call the unit for report. Awaiting for call.
--- NOTE | 2023-11-19 18:20 | NUR ---
TRANSFERRED OUT TO [id number] BY WHEELCHAIR,IN FAIRLY STABLE [place]DIION WITH [employer]GE[employer] ON.CORRECTION OF PATIENT RN.IS GENER.ENDORSED ALL BELONGINGS WELL.
--- NOTE | 2023-11-19 19:20 | NUR ---
RECEIVED PATIENT ON BED. AAOX4. ON ROOM AIR, WITH SATURATION OF 100%. NO SIGNS OF SOB AND CHEST PAIN NOTED. NO COMPLAIN OF NAUSEA AND VOMITING AT THIS TIME. WITH IV SITE ON AZAEL G22. SALINE LOCK, INTACT AND PATENT NOTED. ALL NEEDS ATTENDED AND CALL LIGHT PLACED ON EASY REACHED.
[2023-11-19] MEDS: INSULIN GLARGINE,HUM 300 UNITS/3 ML CARTRIDGE SQ SCH (20:35)
[2023-11-19] MEDS: INSULIN REGULAR, HUMAN 300 UNITS/3 ML VIAL SQ PRN (20:37)
[2023-11-20] MEDS: diphenhydrAMINE 25 MG CAP PO PRN (01:16)
--- NOTE | 2023-11-20 05:33 | NUR ---
PATIENT ABLE TO SLEEP BETWEEN CARE. STILL WITH BEARABLE BILATERAL LEG PAIN 2/10 ON THE PAIN SCALE. NO COMPLAIN OF ABDOMINAL, NAUSEA AND VOMITING THE WHOLE SHIFT. ALL NEEDS ATTENDED.
[2023-11-20 06:09] VITALS: BP 127/80; TEMP 98; O2SAT 98
[2023-11-20 07:29] LABS: BASOPHILS % (AUTO) 0.6 % (0.0-2.0); EOSINOPHILS % (AUTO) 0.7 % (0.0-7.0); HEMATOCRIT 34.7 % (36.7-47.1); HEMOGLOBIN 11.5 g/dL (12.5-16.3); LYMPHOCYTES # (AUTO) 1.3 K/uL (0.8-4.8); LYMPHOCYTES % (AUTO) 39.7 % (20.5-51.5); MEAN CORPUSCULAR HEMOGLOBIN 26.9 uug (23.8-33.4); MEAN CORPUSCULAR HGB CONC 33 g/dL (32.5-36.3); MEAN CORPUSCULAR VOLUME 81.1 fL (73.0-96.2); MONOCYTES # (AUTO) 0.2 K/uL (0.1-1.30); MONOCYTES % (AUTO) 5.8 % (0.0-11.0); NEUTROPHILS # (AUTO) 1.8 K/uL (1.8-8.9); NEUTROPHILS % (AUTO) 53.2 % (38.5-71.5); PLATELET COUNT (AUTO) 91 K/uL (152-348); RED BLOOD CELL COUNT(AUTO) 4.28 MIL/uL (4.06-5.63); RED CELL DISTRIBUTION WIDTH 14.6 % (12.1-16.2); WHITE BLOOD COUNT (AUTO) 3.3 K/uL (3.6-10.2)
[2023-11-20 07:38] LABS: DIFFERENTIAL COMMENT 1
[2023-11-20 07:44] LABS: CALCIUM 8.5 mg/dL (8.5-10.1); CREATININE 1.1 mg/dL (0.6-1.3); MAGNESIUM 1.7 mg/dL (1.8-2.4); PHOSPHOROUS 2.2 mg/dL (2.5-4.9); POTASSIUM 3.3 mmol/L (3.5-5.1)
[2023-11-20] MEDS: POTASSIUM CHLORIDE 20 MEQ POWDER PACKET PO ONE (11:00)
[2023-11-20] MEDS ORDERED: POTASSIUM CHLORIDE 20 MEQ TAB.PRT.SR PO ONE (11:00)
[2023-11-20 11:18] VITALS: BP 106/54; TEMP 97.9; O2SAT 97
[2023-11-20] MEDS: MAGNESIUM OXIDE 400 MG TABLET PO ONE (12:25)
[2023-11-20] MEDS: LIPASE/PROTEASE/AMYLASE 4200 UNITS CAPSULE.DR PO SCH (13:01)
[2023-11-20] MEDS ORDERED: DICY10CA13 PO (13:57)
[2023-11-20] MEDS ORDERED: METR500T PO (13:57)
[2023-11-20] MEDS ORDERED: CIPR-262 PO (13:57)
--- NOTE | 2023-11-20 14:53 | NUR ---
patient D/C charge nurse aware
== END 2023-11-20 15:16 | disposition home or self-care (01) | DRG 720 ==
LOC: ER 13:05 → CCU 19:10 → MEDSURG3 11-19 18:39
PROVIDERS: ADMIT Internal Medicine; ATTEND Internal Medicine
DX: A41.9 Sepsis, unspecified organism (principal); N17.0 Acute kidney failure with tubular necrosis; E10.10 Type 1 diabetes mellitus with ketoacidosis without coma; A04.9 Bacterial intestinal infection, unspecified; I85.00 Esophageal varices without bleeding; E10.42 Type 1 diabetes mellitus with diabetic polyneuropathy; E86.0 Dehydration; Z90.49 Acquired absence of other specified parts of digestive tract; E66.9 Obesity, unspecified; Z68.28 Body mass index [BMI] 28.0-28.9, adult; Z79.4 Long term (current) use of insulin; I86.8 Varicose veins of other specified sites; Z88.1 Allergy status to other antibiotic agents; G89.29 Other chronic pain; Z98.890 Other specified postprocedural states; Z87.19 Personal history of other diseases of the digestive system
CPT/HCPCS: 36415; 36600; 82803; 83690; 83735; 84100; 85025; 93005; A4606; A4663; G0378; J0780; J1170; J1200; J1815; J2060; J2543; J2765; J3480; J7040; Q0163

== ENCOUNTER 2023-12-06 16:22 | Inpatient (IN) | payer OTHER ==
[~2023-12-06] VITALS: Ht 170.2 cm; Wt 80.3 kg
[~2023-12-06 16:22] MED LIST changes: -AMOX-430 PO; -BACL10TA PO; +CIPR-262 PO; +DICY10CA13 PO; +DOCU100T2 PO; +HYDR-3980 PO; +INSU100V36 SQ; -Insulin Glargine,Hum SQ; -LEVO500T90 PO; +LIPA1CAP8 PO; -ONDA4TAB5 PO; -OXYC-133 PO; -PANT40TA2 PO; -PREG50CA PO; +TIZA4TAB5 PO; -[UNRECOGNIZED DRUG - OTHER] PO
[2023-12-06] MEDS ORDERED: ONDANSETRON 4 MG/2 ML VIAL ONE ×2 (17:50→22:41)
[2023-12-06] MEDS ORDERED: HYDROMORPHONE 1 MG/1 ML DISP.SYRIN ONE ×2 (17:50→22:41)
[2023-12-06] MEDS: IV NORMAL SALINE 1000 ML BAG IV ONE ×2 (17:51→18:47)
[2023-12-06] MEDS: HYDROMORPHONE 1 MG/1 ML DISP.SYRIN IV ONE (17:51)
[2023-12-06] MEDS: ONDANSETRON 4 MG/2 ML VIAL IV ONE (17:51)
[2023-12-06 18:05] LABS: BASOPHILS % (AUTO) 0.1 % (0.0-2.0); HEMATOCRIT 47.7 % (36.7-47.1); HEMOGLOBIN 15.7 g/dL (12.5-16.3); LYMPHOCYTES # (AUTO) 0.8 K/uL (0.8-4.8); LYMPHOCYTES % (AUTO) 4.7 % (20.5-51.5); MEAN CORPUSCULAR HGB CONC 33 g/dL (32.5-36.3); MONOCYTES # (AUTO) 0.4 K/uL (0.1-1.30); MONOCYTES % (AUTO) 2.3 % (0.0-11.0); NEUTROPHILS % (AUTO) 92.9 % (38.5-71.5); PLATELET COUNT (AUTO) 252 K/uL (152-348); RED BLOOD CELL COUNT(AUTO) 5.81 MIL/uL (4.06-5.63); WHITE BLOOD COUNT (AUTO) 16.2 K/uL (3.6-10.2)
[2023-12-06 18:08] LABS: DIFFERENTIAL COMMENT 1
[2023-12-06 18:21] LABS: ALANINE AMINOTRANSFERASE 30 U/L (16-63); ALBUMIN 4.7 g/dL (3.4-5.0); ALKALINE PHOSPHATASE 128 U/L (50-136); ASPARTATE AMINOTRANSFERASE 9 U/L (15-37); BILIRUBIN,DIRECT 0.5 mg/dL (0.0-0.2); BILIRUBIN,TOTAL 2.5 mg/dL (0.2-1.0); CALCIUM 9.9 mg/dL (8.5-10.1); CARBON DIOXIDE 20 mmol/L (21-32); CHLORIDE 92 mmol/L (98-107); CREATININE 1.6 mg/dL (0.6-1.3); LIPASE 67 U/L (16-77); POTASSIUM 4.5 mmol/L (3.5-5.1); SODIUM SERUM 138 mmol/L (136-145); TOTAL PROTEIN, SERUM 8.8 g/dL (6.4-8.2); UREA NITROGEN, BLOOD 28 mg/dL (7-18)
[2023-12-06 18:23] LABS: GLUCOSE 571 mg/dL (74-106)
[2023-12-06] MEDS ORDERED: diphenhydrAMINE 50 MG/1 ML VIAL ONE (18:39)
[2023-12-06] MEDS: diphenhydrAMINE 50 MG/1 ML VIAL IV ONE (18:46)
[2023-12-06] MEDS ORDERED: INSULIN REGULAR, HUMAN 1000 UNIT/10 ML VIAL ONE ×3 (19:29→21:28)
[2023-12-06] MEDS: INSULIN REGULAR, HUMAN 1000 UNIT/10 ML VIAL SQ ONE (19:34)
[2023-12-06] MEDS ORDERED: INSULIN REGULAR, HUMAN 100 UNIT in IV NORMAL SALINE 100 ML IV PRN (20:00)
[2023-12-06] MEDS ORDERED: PIPERACILLIN/TAZOBACTAM/D5W 50 ML IV ONE (20:09)
[2023-12-06] MEDS ORDERED: REMEDY ESSENTIAL ZINC PASTE 113 GM TP PRN (20:15)
[2023-12-06] MEDS ORDERED: ACETAMINOPHEN 325 MG TABLET PO PRN (20:15)
[2023-12-06] MEDS ORDERED: HYDROCODONE/APAP 5-325MG TABLET PO PRN (20:15)
[2023-12-06] MEDS ORDERED: TEMAZEPAM 15 MG CAPSULE PO PRN (20:15)
[2023-12-06] MEDS ORDERED: MAGNESIUM HYDROXIDE 30 ML LIQUID UDC PO PRN (20:15)
[2023-12-06] MEDS: PIPERACILLIN SODIUM/TAZOBACTAM 3.375 G in IV DEXTROSE 5% 50 ML IV ONE (20:34)
[2023-12-06 20:41] LABS: ALBUMIN 4.1 g/dL (3.4-5.0); BILIRUBIN,DIRECT 0.5 mg/dL (0.0-0.2); BILIRUBIN,TOTAL 1.9 mg/dL (0.2-1.0); TOTAL PROTEIN, SERUM 7.9 g/dL (6.4-8.2)
[2023-12-06 20:48] LABS: LACTIC ACID 3.3 mmol/L (0.4-2.0)
[2023-12-06] MEDS: INSULIN REGULAR, HUMAN 100 UNITS in IV NORMAL SALINE 100 ML IV ONE (21:32)
[2023-12-06] MEDS: ONDANSETRON 4 MG/2 ML VIAL IV PRN (23:08)
[2023-12-06] MEDS: HYDROMORPHONE 1 MG/1 ML DISP.SYRIN IV PRN (23:08)
[2023-12-06] MEDS: IV NS 1000 ML 1,000 ML IV PRN (23:43)
[2023-12-07 00:18] LABS: CREATININE 1.4 mg/dL (0.6-1.3); POTASSIUM 4.4 mmol/L (3.5-5.1)
[2023-12-07] MEDS ORDERED: diphenhydrAMINE 50 MG/1 ML VIAL ONE ×2 (00:36→07:44)
[2023-12-07] MEDS: diphenhydrAMINE 50 MG/1 ML VIAL IV PRN (00:38)
[2023-12-07] MEDS ORDERED: ONDANSETRON 4 MG/2 ML VIAL ONE (04:41)
[2023-12-07] MEDS ORDERED: MORPHINE SULFATE 2 MG/1 ML DISP.SYRIN ONE (04:41)
[2023-12-07] MEDS ORDERED: HYDROMORPHONE 1 MG/1 ML DISP.SYRIN ONE (04:51)
[2023-12-07 05:13] LABS: CALCIUM 9.5 mg/dL (8.5-10.1); CREATININE 1.4 mg/dL (0.6-1.3); MAGNESIUM 2.2 mg/dL (1.8-2.4); PHOSPHOROUS 2.6 mg/dL (2.5-4.9); POTASSIUM 3.6 mmol/L (3.5-5.1)
[2023-12-07 06:49] LABS: BASOPHILS % (AUTO) 0.1 % (0.0-2.0); HEMATOCRIT 43.3 % (36.7-47.1); HEMOGLOBIN 14.6 g/dL (12.5-16.3); MEAN CORPUSCULAR HEMOGLOBIN 27.3 uug (23.8-33.4); MEAN CORPUSCULAR HGB CONC 34 g/dL (32.5-36.3); MONOCYTES # (AUTO) 1.1 K/uL (0.1-1.30); MONOCYTES % (AUTO) 7.9 % (0.0-11.0); NEUTROPHILS # (AUTO) 12.3 K/uL (1.8-8.9); PLATELET COUNT (AUTO) 188 K/uL (152-348); RED BLOOD CELL COUNT(AUTO) 5.34 MIL/uL (4.06-5.63); RED CELL DISTRIBUTION WIDTH 15.4 % (12.1-16.2); WHITE BLOOD COUNT (AUTO) 14.5 K/uL (3.6-10.2)
[2023-12-07 06:59] LABS: CALCIUM 9.3 mg/dL (8.5-10.1); CREATININE 1.3 mg/dL (0.6-1.3); POTASSIUM 3.7 mmol/L (3.5-5.1)
[2023-12-07 07:03] LABS: DIFFERENTIAL COMMENT 1
[2023-12-07] MEDS ORDERED: METOCLOPRAMIDE HCL 10 MG/2 ML VIAL ONE (07:14)
[2023-12-07] MEDS ORDERED: hydrALAZINE HCL 20 MG/1 ML VIAL ONE (07:15)
[2023-12-07] MEDS: METOCLOPRAMIDE HCL 10 MG/2 ML VIAL IV STA (07:25)
[2023-12-07] MEDS: hydrALAZINE HCL 20 MG/1 ML VIAL IV STA (07:25)
[2023-12-07 08:06] LABS: MAGNESIUM 2.2 mg/dL (1.8-2.4); PHOSPHOROUS 2.4 mg/dL (2.5-4.9)
[2023-12-07] MEDS ORDERED: HOME MED MISCELLANEOUS XX SCH (08:30)
[2023-12-07 08:55] VITALS: BP 155/98; TEMP 97.8
[2023-12-07] MEDS ORDERED: INSULIN LISPRO 300 UNIT/3 ML VIAL SQ SCH (09:00)
[2023-12-07] MEDS: IV NS 1000 ML 1,000 ML IV PRN (09:01)
[2023-12-07] MEDS: HYDROMORPHONE 1 MG/1 ML DISP.SYRIN IV PRN (09:05)
[2023-12-07] MEDS ORDERED: MISCELLANEOUS MED PO SCH (11:30)
[2023-12-07 11:36] VITALS: BP 155/98; TEMP 97.8; O2SAT 100
[2023-12-07 11:39] VITALS: BP 152/96; TEMP 98.4; O2SAT 98
[2023-12-07] MEDS: LIPASE/PROTEASE/AMYLASE 4200 UNITS CAPSULE.DR PO SCH (12:14)
[2023-12-07] MEDS ORDERED: DEXTROSE 50% 50 ML DISP.SYRIN IV PRN (12:30)
[2023-12-07] MEDS: INSULIN REGULAR, HUMAN 1000 UNIT/10 ML VIAL SQ PRN (12:43)
[2023-12-07] MEDS: SODIUM PHOSPHATE MM 15 MMOL in IV NORMAL SALINE 250 ML IV ONE (15:05)
[2023-12-07] MEDS: BLOOD SUGAR DIAGNOSTIC 1 EACH STRIP VI SCH (15:49)
[2023-12-07] MEDS: METOCLOPRAMIDE HCL 10 MG/2 ML VIAL IV PRN (16:08)
[2023-12-07] MEDS: hydrALAZINE HCL 20 MG/1 ML VIAL IV PRN (16:10)
[2023-12-07 16:36] LABS: CREATININE 1.4 mg/dL (0.6-1.3); POTASSIUM 4.2 mmol/L (3.5-5.1)
[2023-12-07 16:39] VITALS: BP 180/91; TEMP 98.3; O2SAT 100
[2023-12-07 17:00] VITALS: BP 133/80
[2023-12-07 20:23] LABS: CALCIUM 8.8 mg/dL (8.5-10.1); CREATININE 1.3 mg/dL (0.6-1.3)
[2023-12-07] MEDS: INSULIN GLARGINE,HUM 300 UNITS/3 ML CARTRIDGE SQ SCH (20:36)
[2023-12-07] MEDS: INSULIN REGULAR, HUMAN 300 UNITS/3 ML VIAL SQ PRN (20:39)
[2023-12-07 21:12] VITALS: BP 124/82; TEMP 98.3; O2SAT 99
[2023-12-08 04:40] VITALS: BP 139/82; TEMP 98.2; O2SAT 99
[2023-12-08 06:59] LABS: CREATININE 1.1 mg/dL (0.6-1.3); PHOSPHOROUS 2.4 mg/dL (2.5-4.9); POTASSIUM 3.5 mmol/L (3.5-5.1)
[2023-12-08] MEDS ORDERED: INSULIN LISPRO 300 UNIT/3 ML VIAL SQ SCH (09:00)
[2023-12-08 11:23] VITALS: BP 122/76; TEMP 98.6; O2SAT 94
[2023-12-08] MEDS: NEUTRA PHOS PACKET PO ONE (12:13)
[2023-12-08 15:42] VITALS: BP 118/74; TEMP 98.5; O2SAT 96
[2023-12-08] MEDS: INSULIN REGULAR, HUMAN 1000 UNIT/10 ML VIAL SQ SCH (16:30)
== END 2023-12-08 17:00 | disposition home or self-care (01) | DRG 420 ==
LOC: ER 16:23 → TRANSITION 12-07 04:45 → TELE3 12-07 08:31 → MEDSURG3 12-07 08:49
PROVIDERS: ADMIT Nurse Practitioner Acute Care; ATTEND Surgery Vascular Surgery
PROC: 05HC33Z Insertion of Infusion Device into Left Basilic Vein, Percutaneous Approach (ICD-10-PCS; principal; 2023-12-07)
DX: E10.10 Type 1 diabetes mellitus with ketoacidosis without coma (principal); N17.0 Acute kidney failure with tubular necrosis; E10.42 Type 1 diabetes mellitus with diabetic polyneuropathy; G89.4 Chronic pain syndrome; I85.00 Esophageal varices without bleeding; I86.8 Varicose veins of other specified sites; Z87.19 Personal history of other diseases of the digestive system; E66.3 Overweight; Z68.27 Body mass index [BMI] 27.0-27.9, adult; F12.10 Cannabis abuse, uncomplicated; E86.0 Dehydration; R17 Unspecified jaundice; Z79.4 Long term (current) use of insulin; Z90.49 Acquired absence of other specified parts of digestive tract; Z90.411 Acquired partial absence of pancreas; Z79.891 Long term (current) use of opiate analgesic; Z88.1 Allergy status to other antibiotic agents; Z79.899 Other long term (current) drug therapy; Z91.018 Allergy to other foods; Z91.148 Patient's other noncompliance with medication regimen for other reason
CPT/HCPCS: 36415; 71045; 83605; 83690; 83735; 84100; 84484; 85025; 87040; G0378; J0360; J1170; J1200; J1815; J2270; J2405; J2543; J2765; J3490; J7040

== ENCOUNTER 2023-12-28 19:45 | Emergency (ER) | payer OTHER ==
[~2023-12-28] VITALS: Ht 170.2 cm; Wt 81.6 kg
[~2023-12-28 19:45] MED LIST changes: -CIPR-262 PO; -METR500T PO
[2023-12-28 20:15] LABS: BASOPHILS # (AUTO) 0.1 K/UL (0.0-0.2); BASOPHILS % (AUTO) 0.5 % (0.0-2.0); EOSINOPHILS % (AUTO) 0.1 % (0.0-7.0); HEMATOCRIT 47.2 % (36.7-47.1); LYMPHOCYTES # (AUTO) 1.9 K/uL (0.8-4.8); LYMPHOCYTES % (AUTO) 16.9 % (20.5-51.5); MEAN CORPUSCULAR HEMOGLOBIN 26.8 uug (23.8-33.4); MEAN CORPUSCULAR HGB CONC 34 g/dL (32.5-36.3); MEAN CORPUSCULAR VOLUME 78.8 fL (73.0-96.2); MONOCYTES # (AUTO) 0.8 K/uL (0.1-1.30); MONOCYTES % (AUTO) 7.3 % (0.0-11.0); NEUTROPHILS # (AUTO) 8.3 K/uL (1.8-8.9); NEUTROPHILS % (AUTO) 75.2 % (38.5-71.5); PLATELET COUNT (AUTO) 240 K/uL (152-348); RED BLOOD CELL COUNT(AUTO) 5.99 MIL/uL (4.06-5.63); RED CELL DISTRIBUTION WIDTH 14.6 % (12.1-16.2)
[2023-12-28 20:16] LABS: DIFFERENTIAL COMMENT 1
[2023-12-28 20:25] LABS: ETHANOL < 3 MG/DL (0-10)
[2023-12-28 20:26] LABS: ALANINE AMINOTRANSFERASE 15 U/L (16-63); ALBUMIN 4.4 g/dL (3.4-5.0); ALKALINE PHOSPHATASE 118 U/L (50-136); ASPARTATE AMINOTRANSFERASE 8 U/L (15-37); BILIRUBIN,TOTAL 2.8 mg/dL (0.2-1.0); CALCIUM 9.8 mg/dL (8.5-10.1); CARBON DIOXIDE 31 mmol/L (21-32); CHLORIDE 89 mmol/L (98-107); CREATININE 1.1 mg/dL (0.6-1.3); LIPASE 27 U/L (16-77); POTASSIUM 3.6 mmol/L (3.5-5.1); SODIUM SERUM 131 mmol/L (136-145); TOTAL PROTEIN, SERUM 8.3 g/dL (6.4-8.2); UREA NITROGEN, BLOOD 31 mg/dL (7-18)
[2023-12-28] MEDS ORDERED: KETOROLAC TROMETHAMINE 30 MG INJ ONE (20:30)
[2023-12-28] MEDS ORDERED: ONDANSETRON 4 MG/2 ML VIAL ONE (20:30)
[2023-12-28 20:31] LABS: GLUCOSE 240 mg/dL (74-106)
[2023-12-28] MEDS: ONDANSETRON 4 MG/2 ML VIAL IV ONE (20:37)
[2023-12-28] MEDS: KETOROLAC TROMETHAMINE 30 MG INJ IVP ONE (20:37)
[2023-12-28] MEDS ORDERED: ONDA4TAB5 PO (21:44)
[2023-12-28] MEDS ORDERED: PANT40TA2 PO (21:44)
[2023-12-28 22:28] VITALS: BP 120/80; TEMP 98; O2SAT 100
== END 2023-12-28 21:57 | disposition home or self-care (01) ==
LOC: ER 19:46
DX: R10.84 Generalized abdominal pain (principal); E11.65 Type 2 diabetes mellitus with hyperglycemia; F17.200 Nicotine dependence, unspecified, uncomplicated; Z90.49 Acquired absence of other specified parts of digestive tract; Z79.4 Long term (current) use of insulin; Z79.899 Other long term (current) drug therapy; Z88.1 Allergy status to other antibiotic agents
CPT/HCPCS: 80053; 82009; 82962; 83690; 85025; 36415; 74176; 99285; 96374; 96375; 80320; J1885; J2405; A4606; A4663; G0480

== ENCOUNTER 2024-04-06 11:37 | Emergency (ER) | payer OTHER ==
[~2024-04-06] VITALS: Ht 167.6 cm; Wt 73.5 kg
[~2024-04-06 11:37] MED LIST changes: +ONDA4TAB5 PO; +PANT40TA2 PO
[2024-04-06] MEDS ORDERED: OXYC1TAB12 PO (12:04)
[2024-04-06] MEDS ORDERED: ONDA-104 PO (12:04)
[2024-04-06] MEDS ORDERED: HYDROMORPHONE 2 MG/1 ML DISP.SYRIN ONE (12:36)
[2024-04-06] MEDS ORDERED: ONDANSETRON 4 MG/2 ML VIAL ONE ×2 (12:36→20:59)
[2024-04-06 12:38] LABS: BASOPHILS % (AUTO) 0.3 % (0.0-2.0); HEMATOCRIT 45.6 % (36.7-47.1); HEMOGLOBIN 15.7 g/dL (12.5-16.3); LYMPHOCYTES # (AUTO) 0.9 K/uL (0.8-4.8); LYMPHOCYTES % (AUTO) 7.5 % (20.5-51.5); MEAN CORPUSCULAR HEMOGLOBIN 27.6 uug (23.8-33.4); MEAN CORPUSCULAR HGB CONC 35 g/dL (32.5-36.3); MONOCYTES # (AUTO) 0.5 K/uL (0.1-1.30); MONOCYTES % (AUTO) 4.2 % (0.0-11.0); PLATELET COUNT (AUTO) 194 K/uL (152-348); RED CELL DISTRIBUTION WIDTH 14.6 % (12.1-16.2); WHITE BLOOD COUNT (AUTO) 11.4 K/uL (3.6-10.2)
[2024-04-06 12:40] LABS: ABG BASE EXCESS -0.1 mmol/L (-2.0-3.0); ABG HCO3 22.6 mmol/L (21.0-28.0); ABG PCO2 31.8 mmHg (35.0-48.0); ABG PO2 97.2 mmHg (83.0-108.0); ABG SITE RIGHT RADIAL; ABG TOTAL HEMOGLOBIN 15.1 G/dL (13.5-17.5); AaDO2 97.8 mmHg; COHb 1.8 % (0.5-1.5); MetHb 0.3 % (0.0-1.5); O2Hb 95.6 % (94.0-98.0)
[2024-04-06] MEDS: HYDROMORPHONE 1 MG/1 ML DISP.SYRIN IV ONE ×3 (12:41→21:03)
[2024-04-06] MEDS: ONDANSETRON 4 MG/2 ML VIAL IV ONE ×2 (12:41→21:03)
[2024-04-06 12:42] LABS: DIFFERENTIAL COMMENT 1
[2024-04-06] MEDS: IV NORMAL SALINE 1000 ML BAG IV ONE (12:43)
[2024-04-06 12:50] LABS: CALCIUM 10.2 mg/dL (8.5-10.1); CREATININE 1.6 mg/dL (0.6-1.3); POTASSIUM 4.4 mmol/L (3.5-5.1)
[2024-04-06] MEDS ORDERED: INSULIN REGULAR, HUMAN 1000 UNIT/10 ML VIAL IV ONE (13:00)
[2024-04-06] MEDS ORDERED: INSULIN REGULAR, HUMAN 1000 UNIT/10 ML VIAL ONE (13:02)
[2024-04-06 13:04] LABS: ALBUMIN 5.3 g/dL (3.4-5.0); BILIRUBIN,DIRECT 0.6 mg/dL (0.0-0.2); BILIRUBIN,TOTAL 3.3 mg/dL (0.2-1.0); TOTAL PROTEIN, SERUM 9.5 g/dL (6.4-8.2)
[2024-04-06] MEDS ORDERED: IV NORMAL SALINE 250 ML IV ONE (13:10)
[2024-04-06] MEDS ORDERED: IOHEXOL 300MG/ML 100 ML INFUS..BTL ONE (13:10)
[2024-04-06] MEDS ORDERED: SWABABLE VALVE TRANSFER SET EA MC ONE (13:10)
[2024-04-06] MEDS: INSULIN REGULAR, HUMAN 1000 UNIT/10 ML VIAL SQ ONE (13:12)
[2024-04-06] MEDS ORDERED: HYDROMORPHONE 1 MG/1 ML DISP.SYRIN ONE ×2 (16:41→20:59)
[2024-04-06] MEDS ORDERED: METOCLOPRAMIDE HCL 10 MG/2 ML VIAL ONE (18:59)
[2024-04-06] MEDS: METOCLOPRAMIDE HCL 10 MG/2 ML VIAL IV ONE (19:02)
[2024-04-06 20:15] VITALS: O2SAT 95
== END 2024-04-06 22:36 | disposition short-term general hospital (02) ==
LOC: ER 11:37
DX: R10.84 Generalized abdominal pain (principal); R74.8 Abnormal levels of other serum enzymes; E10.65 Type 1 diabetes mellitus with hyperglycemia; E86.0 Dehydration; F17.200 Nicotine dependence, unspecified, uncomplicated; Z79.4 Long term (current) use of insulin; Z79.899 Other long term (current) drug therapy; Z90.411 Acquired partial absence of pancreas; Z90.49 Acquired absence of other specified parts of digestive tract; Z96.41 Presence of insulin pump (external) (internal); Z88.1 Allergy status to other antibiotic agents
CPT/HCPCS: 99285; 74177; 96374; 96361; 96375; 80076; 80048; 83690; 83735; 85025; 82803; 93005; 96376; 83605; 36600 ×2; 96372; J1171 ×3; J2765; J2405 ×2; Q9967; J1815; J7040; A4606; A4663

== ENCOUNTER 2024-06-14 08:35 | Inpatient (IN) | payer OTHER ==
[~2024-06-14] VITALS: Ht 167.6 cm; Wt 61.7 kg
[~2024-06-14 08:35] MED LIST changes: +ONDA-104 PO; +OXYC1TAB12 PO
[2024-06-14 09:43] LABS: BASOPHILS # (AUTO) 0.1 K/UL (0.0-0.2); BASOPHILS % (AUTO) 0.4 % (0.0-2.0); HEMATOCRIT 46.9 % (36.7-47.1); HEMOGLOBIN 16.2 g/dL (12.5-16.3); LYMPHOCYTES # (AUTO) 1.1 K/uL (0.8-4.8); LYMPHOCYTES % (AUTO) 6.2 % (20.5-51.5); MEAN CORPUSCULAR HEMOGLOBIN 27.7 uug (23.8-33.4); MEAN CORPUSCULAR HGB CONC 35 g/dL (32.5-36.3); MEAN CORPUSCULAR VOLUME 80.3 fL (73.0-96.2); MONOCYTES # (AUTO) 0.9 K/uL (0.1-1.30); MONOCYTES % (AUTO) 5.1 % (0.0-11.0); NEUTROPHILS # (AUTO) 16.2 K/uL (1.8-8.9); NEUTROPHILS % (AUTO) 88.3 % (38.5-71.5); PLATELET COUNT (AUTO) 325 K/uL (152-348); RED BLOOD CELL COUNT(AUTO) 5.84 MIL/uL (4.06-5.63); RED CELL DISTRIBUTION WIDTH 14.9 % (12.1-16.2); WHITE BLOOD COUNT (AUTO) 18.3 K/uL (3.6-10.2)
[2024-06-14 09:45] LABS: DIFFERENTIAL COMMENT 1
[2024-06-14 09:58] LABS: ALANINE AMINOTRANSFERASE 7 U/L (16-63); ALBUMIN 4.7 g/dL (3.4-5.0); ALKALINE PHOSPHATASE 170 U/L (50-136); ASPARTATE AMINOTRANSFERASE 11 U/L (15-37); BILIRUBIN,DIRECT 0.6 mg/dL (0.0-0.2); BILIRUBIN,TOTAL 2.4 mg/dL (0.2-1.0); CALCIUM 10.2 mg/dL (8.5-10.1); CARBON DIOXIDE 14 mmol/L (21-32); CHLORIDE 81 mmol/L (98-107); CREATININE 2.1 mg/dL (0.6-1.3); LIPASE 94 U/L (16-77); POTASSIUM 4.9 mmol/L (3.5-5.1); SODIUM SERUM 124 mmol/L (136-145); UREA NITROGEN, BLOOD 32 mg/dL (7-18)
[2024-06-14 09:59] LABS: GLUCOSE 691 mg/dL (74-106)
[2024-06-14] MEDS: IV NORMAL SALINE 1000 ML BAG IV ONE (10:24)
[2024-06-14] MEDS ORDERED: METOCLOPRAMIDE HCL 10 MG/2 ML VIAL ONE ×2 (11:21→16:09)
[2024-06-14] MEDS ORDERED: HYDROMORPHONE 1 MG/1 ML DISP.SYRIN ONE ×3 (11:21→20:17)
[2024-06-14] MEDS ORDERED: diphenhydrAMINE 50 MG/1 ML VIAL ONE ×2 (11:21→16:09)
[2024-06-14] MEDS: HYDROMORPHONE 1 MG/1 ML DISP.SYRIN IV ONE ×2 (11:24→15:25)
[2024-06-14] MEDS: METOCLOPRAMIDE HCL 10 MG/2 ML VIAL IV ONE ×2 (11:24→15:25)
[2024-06-14] MEDS: diphenhydrAMINE 50 MG/1 ML VIAL IV ONE ×2 (11:24→15:25)
[2024-06-14] MEDS ORDERED: ONDANSETRON 4 MG/2 ML VIAL IV PRN (14:15)
[2024-06-14] MEDS ORDERED: INSULIN REGULAR, HUMAN 100 UNIT in IV NORMAL SALINE 100 ML IV PRN ×2 (14:15→17:00)
[2024-06-14] MEDS ORDERED: IV NS 1000 ML 1,000 ML IV PRN (14:15)
[2024-06-14] MEDS ORDERED: IV 0.9% SODIUM CHLORID+ 20 KCL 1,000 ML ONE ×3 (14:22→23:29)
[2024-06-14] MEDS ORDERED: INSULIN REGULAR, HUMAN 1000 UNIT/10 ML VIAL ONE (14:23)
[2024-06-14] MEDS: IV 0.9% SODIUM CHLORID+ 20 KCL 1,000 ML IV PRN (15:04)
[2024-06-14] MEDS: INSULIN REGULAR, HUMAN 100 UNIT in IV NORMAL SALINE 99 ML IV PRN (15:07)
[2024-06-14] MEDS: BLOOD SUGAR DIAGNOSTIC 1 EACH STRIP VI SCH (15:18)
[2024-06-14] MEDS ORDERED: INSU100V7 SQ (15:19)
[2024-06-14] MEDS ORDERED: METO10TA3 PO (15:19)
[2024-06-14] MEDS ORDERED: LOSA50TA39 PO (15:19)
[2024-06-14 15:39] LABS: CALCIUM 8.8 mg/dL (8.5-10.1); CREATININE 1.8 mg/dL (0.6-1.3); MAGNESIUM 2.1 mg/dL (1.8-2.4)
[2024-06-14] MEDS ORDERED: hydrALAZINE HCL 20 MG/1 ML VIAL ONE (16:36)
[2024-06-14] MEDS: hydrALAZINE HCL 20 MG/1 ML VIAL IV PRN (16:44)
[2024-06-14 18:35] LABS: CALCIUM 8.8 mg/dL (8.5-10.1); CREATININE 1.7 mg/dL (0.6-1.3); MAGNESIUM 2.1 mg/dL (1.8-2.4); PHOSPHOROUS 3.9 mg/dL (2.5-4.9); POTASSIUM 4.6 mmol/L (3.5-5.1)
[2024-06-14] MEDS: HYDROMORPHONE 1 MG/1 ML DISP.SYRIN IV PRN (20:19)
[2024-06-14] MEDS: CIPROFLOXACIN IV 200 MG in PREMIXED 1 EACH IV SCH (21:23)
[2024-06-14] MEDS: METRONIDAZOLE 500 MG/NS 100ML 500 MG in PREMIXED 1 EACH IV SCH (22:21)
[2024-06-14 22:30] LABS: CALCIUM 8.6 mg/dL (8.5-10.1); CREATININE 1.5 mg/dL (0.6-1.3); POTASSIUM 4.4 mmol/L (3.5-5.1)
[2024-06-14] MEDS ORDERED: ONDANSETRON 4 MG/2 ML VIAL ONE (23:37)
[2024-06-14] MEDS: ONDANSETRON 4 MG/2 ML VIAL IV PRN (23:40)
[2024-06-15] MEDS ORDERED: HYDROMORPHONE 1 MG/1 ML DISP.SYRIN ONE ×3 (00:33→07:39)
[2024-06-15 02:19] LABS: CALCIUM 8.6 mg/dL (8.5-10.1); CREATININE 1.4 mg/dL (0.6-1.3); MAGNESIUM 1.9 mg/dL (1.8-2.4); PHOSPHOROUS 2.2 mg/dL (2.5-4.9); POTASSIUM 4.3 mmol/L (3.5-5.1)
[2024-06-15] MEDS ORDERED: diphenhydrAMINE 50 MG/1 ML VIAL ONE (04:50)
[2024-06-15] MEDS: diphenhydrAMINE 50 MG/1 ML VIAL IV PRN (04:55)
[2024-06-15 05:50] LABS: ABG BASE EXCESS -6.1 mmol/L (-2.0-3.0); ABG HCO3 18.9 mmol/L (21.0-28.0); ABG PCO2 35.8 mmHg (35.0-48.0); ABG PH 7.341 (7.350-7.450); ABG SITE RIGHT RADIAL; ABG TOTAL HEMOGLOBIN 12.8 G/dL (13.5-17.5); AaDO2 96.5 mmHg; COHb 0.9 % (0.5-1.5); MetHb 0.3 % (0.0-1.5); O2Hb 95.4 % (94.0-98.0)
[2024-06-15 05:52] LABS: BASOPHILS % (AUTO) 0.4 % (0.0-2.0); EOSINOPHILS % (AUTO) 0.1 % (0.0-7.0); HEMOGLOBIN 13.1 g/dL (12.5-16.3); LYMPHOCYTES # (AUTO) 1.2 K/uL (0.8-4.8); LYMPHOCYTES % (AUTO) 11.7 % (20.5-51.5); MEAN CORPUSCULAR HEMOGLOBIN 27.5 uug (23.8-33.4); MEAN CORPUSCULAR HGB CONC 36 g/dL (32.5-36.3); MEAN CORPUSCULAR VOLUME 77.5 fL (73.0-96.2); MONOCYTES # (AUTO) 1.1 K/uL (0.1-1.30); NEUTROPHILS # (AUTO) 8.3 K/uL (1.8-8.9); NEUTROPHILS % (AUTO) 77.8 % (38.5-71.5); PLATELET COUNT (AUTO) 195 K/uL (152-348); RED BLOOD CELL COUNT(AUTO) 4.78 MIL/uL (4.06-5.63); RED CELL DISTRIBUTION WIDTH 14.6 % (12.1-16.2); WHITE BLOOD COUNT (AUTO) 10.7 K/uL (3.6-10.2)
[2024-06-15 05:54] LABS: DIFFERENTIAL COMMENT 1
[2024-06-15] MEDS ORDERED: IV D5 1/2 NS 1000 ML 1,000 ML IV PRN (06:00)
[2024-06-15 06:27] LABS: ALBUMIN 3.4 g/dL (3.4-5.0); BILIRUBIN,DIRECT 0.4 mg/dL (0.0-0.2); BILIRUBIN,TOTAL 1.2 mg/dL (0.2-1.0); CALCIUM 8.9 mg/dL (8.5-10.1); CREATININE 1.4 mg/dL (0.6-1.3); PHOSPHOROUS 2.1 mg/dL (2.5-4.9); POTASSIUM 3.8 mmol/L (3.5-5.1); TOTAL PROTEIN, SERUM 6.5 g/dL (6.4-8.2)
[2024-06-15 06:28] LABS: THYROID STIMULATING HORMONE 2.448 mIU/mL (0.358-3.740)
[2024-06-15] MEDS ORDERED: ONDANSETRON 4 MG/2 ML VIAL ONE (07:39)
[2024-06-15] MEDS ORDERED: MAGNESIUM SULFATE/D5W 100 ML IV SCH (08:00)
[2024-06-15] MEDS ORDERED: POTASSIUM CHLORIDE 50 ML IV SCH (08:00)
[2024-06-15 08:43] VITALS: BP 169/96; TEMP 97.7; O2SAT 97
[2024-06-15] MEDS ORDERED: DEXTROSE 50% 50 ML DISP.SYRIN IV PRN (08:45)
[2024-06-15] MEDS: BLOOD SUGAR DIAGNOSTIC 1 EACH STRIP VI SCH (09:04)
[2024-06-15] MEDS: PANTOPRAZOLE SODIUM 40 MG VIAL IV SCH (09:04)
[2024-06-15] MEDS: INSULIN REGULAR, HUMAN 1000 UNIT/10 ML VIAL SQ PRN (09:07)
[2024-06-15] MEDS: IV NS 1000 ML 1,000 ML IV PRN (09:10)
[2024-06-15] MEDS: INSULIN GLARGINE,HUM 300 UNITS/3 ML CARTRIDGE SQ SCH (11:59)
[2024-06-15 14:32] LABS: CALCIUM 8.1 mg/dL (8.5-10.1); CREATININE 1.2 mg/dL (0.6-1.3); MAGNESIUM 1.8 mg/dL (1.8-2.4); PHOSPHOROUS 1.8 mg/dL (2.5-4.9); POTASSIUM 4.2 mmol/L (3.5-5.1)
[2024-06-15 15:25] VITALS: BP 152/104; TEMP 98.6; O2SAT 98
[2024-06-15] MEDS: NEUTRA PHOS PACKET PO ONE (16:53)
[2024-06-15 19:46] VITALS: BP 136/100; TEMP 97.7; O2SAT 100
[2024-06-15] MEDS: METOPROLOL TARTRATE 25 MG TABLET PO SCH (20:30)
[2024-06-15] MEDS: INSULIN REGULAR, HUMAN 300 UNITS/3 ML VIAL SQ PRN (20:40)
[2024-06-15] MEDS: CIPROFLOXACIN IV 400 MG in PREMIXED 1 EACH IV SCH (20:44)
[2024-06-15 23:51] VITALS: BP 146/96; TEMP 97.8; O2SAT 100
[2024-06-16 02:26] LABS: *AMPHETAMINE, URINE NEGATIVE (NEGATIVE); *BARBITURATE, URINE NEGATIVE (NEGATIVE); *BENZODIAZEPINE, URINE NEGATIVE (NEGATIVE); *CANNABINOID, URINE POSITIVE (NEGATIVE); *COCCAINE, URINE NEGATIVE (NEGATIVE); *OPIATE, URINE POSITIVE (NEGATIVE); *PHENCYCLIDINE SCREEN,URINE NEGATIVE (NEGATIVE); FENTANYL, URINE NEGATIVE (NEGATIVE)
[2024-06-16 02:51] LABS: *BLOOD, URINE NEGATIVE (NEGATIVE); *CLARITY,URINE CLEAR (CLEAR); *COLOR,URINE YELLOW (YELLOW); *KETONES,URINE 3+ (NEGATIVE); *PROTEIN,URINE 1+ (NEGATIVE); *UROBILINOGEN,URINE 0.2 E.U./dl (NORMAL); LEUKOCYTE ESTERASE ,URINE NEGATIVE (NEGATIVE); NITRITE, URINE NEGATIVE (NEGATIVE)
[2024-06-16 02:55] LABS: *BILIRUBIN,URIN 1+ (NEGATIVE); UGLUCOSE 2+ (NEGATIVE)
[2024-06-16 02:59] LABS: BACTERIA,URINE FEW /HPF (NONE SEEN); RBC,URINE 0-3 /HPF (0-3); SQUAMOUS EPITHELIAL CELL,UR FEW /HPF (NONE SEEN); WBC,URINE NONE SEEN /HPF (0-3)
[2024-06-16 05:30] VITALS: BP 127/71; TEMP 97.8; O2SAT 98
[2024-06-16 06:56] LABS: BASOPHILS % (AUTO) 0.3 % (0.0-2.0); EOSINOPHILS % (AUTO) 0.4 % (0.0-7.0); HEMATOCRIT 33.4 % (36.7-47.1); HEMOGLOBIN 11.9 g/dL (12.5-16.3); LYMPHOCYTES # (AUTO) 1.3 K/uL (0.8-4.8); LYMPHOCYTES % (AUTO) 22.8 % (20.5-51.5); MEAN CORPUSCULAR HEMOGLOBIN 27.7 uug (23.8-33.4); MEAN CORPUSCULAR HGB CONC 36 g/dL (32.5-36.3); MEAN CORPUSCULAR VOLUME 77.8 fL (73.0-96.2); MONOCYTES # (AUTO) 0.4 K/uL (0.1-1.30); MONOCYTES % (AUTO) 6.9 % (0.0-11.0); NEUTROPHILS # (AUTO) 3.9 K/uL (1.8-8.9); NEUTROPHILS % (AUTO) 69.6 % (38.5-71.5); PLATELET COUNT (AUTO) 129 K/uL (152-348); RED BLOOD CELL COUNT(AUTO) 4.29 MIL/uL (4.06-5.63); RED CELL DISTRIBUTION WIDTH 14.6 % (12.1-16.2); WHITE BLOOD COUNT (AUTO) 5.6 K/uL (3.6-10.2)
[2024-06-16 07:12] LABS: DIFFERENTIAL COMMENT 1
[2024-06-16 07:16] LABS: ALBUMIN 2.9 g/dL (3.4-5.0); BILIRUBIN,DIRECT 0.3 mg/dL (0.0-0.2); BILIRUBIN,TOTAL 0.8 mg/dL (0.2-1.0); CALCIUM 8.4 mg/dL (8.5-10.1); MAGNESIUM 1.7 mg/dL (1.8-2.4); PHOSPHOROUS 2.1 mg/dL (2.5-4.9); POTASSIUM 3.5 mmol/L (3.5-5.1); TOTAL PROTEIN, SERUM 5.7 g/dL (6.4-8.2)
[2024-06-16 07:24] VITALS: BP 126/87; TEMP 97.9; O2SAT 99
[2024-06-16] MEDS: LISINOPRIL 5 MG TABLET PO SCH (08:13)
[2024-06-16] MEDS: MAGNESIUM OXIDE 400 MG TABLET PO ONE (14:09)
[2024-06-16 15:05] VITALS: BP 113/62; TEMP 98.2; O2SAT 97
[2024-06-16 15:53] LABS: HIV-1 p24 ANTIGEN NON REACTIVE (NONREACTIVE); HIV-1/2 ANTIBODY NON REACTIVE (NONREACTIVE)
[2024-06-16] MEDS: NEUTRA PHOS PACKET PO ONE (16:48)
[2024-06-16 20:04] VITALS: BP 108/67; TEMP 97.8; O2SAT 98
[2024-06-16] MEDS: CIPROFLOXACIN HCL 250 MG TABLET PO SCH (20:22)
[2024-06-16] MEDS: METRONIDAZOLE 250 MG TABLET PO SCH (21:02)
[2024-06-17 00:05] VITALS: BP 151/88; TEMP 98.4; O2SAT 98
[2024-06-17 06:01] VITALS: BP 109/90; TEMP 97.7; O2SAT 99
[2024-06-17] MEDS: PANTOPRAZOLE SODIUM 40 MG TABLET.DR PO SCH (06:10)
[2024-06-17 07:16] LABS: CALCIUM 8.2 mg/dL (8.5-10.1); CREATININE 0.9 mg/dL (0.6-1.3); PHOSPHOROUS 2.6 mg/dL (2.5-4.9); POTASSIUM 3.3 mmol/L (3.5-5.1)
[2024-06-17 07:29] VITALS: BP 114/68; TEMP 98.4; O2SAT 98
[2024-06-17] MEDS ORDERED: METR250T36 PO (10:31)
[2024-06-17] MEDS ORDERED: CIPR250T4 PO (10:31)
[2024-06-17] MEDS ORDERED: ONDA4TAB5 PO (10:56)
[2024-06-17 11:01] VITALS: BP 139/95; TEMP 97.7; O2SAT 97
== END 2024-06-17 14:58 | disposition home or self-care (01) | DRG 248 ==
LOC: ER 08:41 → ICU IN 15:46 → TELE3 06-15 08:04
PROVIDERS: ADMIT Nurse Practitioner Family; ATTEND Nurse Practitioner Family
PROC: 05HB33Z Insertion of Infusion Device into Right Basilic Vein, Percutaneous Approach (ICD-10-PCS; principal; 2024-06-14)
DX: A04.9 Bacterial intestinal infection, unspecified (principal); N17.0 Acute kidney failure with tubular necrosis; E10.10 Type 1 diabetes mellitus with ketoacidosis without coma; E10.42 Type 1 diabetes mellitus with diabetic polyneuropathy; K85.90 Acute pancreatitis without necrosis or infection, unspecified; I85.00 Esophageal varices without bleeding; R17 Unspecified jaundice; E83.39 Other disorders of phosphorus metabolism; K31.84 Gastroparesis; E87.1 Hypo-osmolality and hyponatremia; E86.0 Dehydration; Z79.4 Long term (current) use of insulin; E10.43 Type 1 diabetes mellitus with diabetic autonomic (poly)neuropathy; Z90.49 Acquired absence of other specified parts of digestive tract; F12.20 Cannabis dependence, uncomplicated; G89.4 Chronic pain syndrome; F32.A Depression, unspecified; D49.0 Neoplasm of unspecified behavior of digestive system; I86.8 Varicose veins of other specified sites; K63.9 Disease of intestine, unspecified; K21.00 Gastro-esophageal reflux disease with esophagitis, without bleeding; Z79.891 Long term (current) use of opiate analgesic; Z79.899 Other long term (current) drug therapy; Z88.1 Allergy status to other antibiotic agents; Z91.199 Patient's noncompliance with other medical treatment and regimen due to unspecified reason; Z87.891 Personal history of nicotine dependence; E86.1 Hypovolemia
CPT/HCPCS: 36415; 36600; 71045; 83690; 83735; 84100; 84443; 84484; 85025; 85730; 87040; 87086; 87806; A4606; A4663; G0378; J0360; J0744; J1171; J1200; J1815; J2405; J2470; J2765; J3490; J7040

== ENCOUNTER 2024-08-22 13:18 | Emergency (ER) | payer OTHER ==
[~2024-08-22] VITALS: Ht 170.2 cm; Wt 79.4 kg
[~2024-08-22 13:18] MED LIST changes: +CIPR250T4 PO; -HYDR-3980 PO; +INSU100V7 SQ; +LOSA50TA39 PO; +METO10TA3 PO; +METR250T36 PO; -ONDA-104 PO; -PANT40TA2 PO
[2024-08-22 13:29] VITALS: O2SAT 98
[2024-08-22] MEDS: IV NORMAL SALINE 1000 ML BAG IV ONE ×2 (14:15→14:33)
[2024-08-22 14:34] LABS: BASOPHILS % (AUTO) 0.4 % (0.0-2.0); HEMATOCRIT 43.7 % (36.7-47.1); HEMOGLOBIN 15.3 g/dL (12.5-16.3); LYMPHOCYTES # (AUTO) 1.3 K/uL (0.8-4.8); LYMPHOCYTES % (AUTO) 16.7 % (20.5-51.5); MEAN CORPUSCULAR HGB CONC 35 g/dL (32.5-36.3); MEAN CORPUSCULAR VOLUME 80.3 fL (73.0-96.2); MONOCYTES # (AUTO) 0.5 K/uL (0.1-1.30); MONOCYTES % (AUTO) 6.5 % (0.0-11.0); NEUTROPHILS % (AUTO) 76.4 % (38.5-71.5); PLATELET COUNT (AUTO) 177 K/uL (152-348); RED BLOOD CELL COUNT(AUTO) 5.45 MIL/uL (4.06-5.63); RED CELL DISTRIBUTION WIDTH 14.2 % (12.1-16.2); WHITE BLOOD COUNT (AUTO) 7.8 K/uL (3.6-10.2)
[2024-08-22 14:36] LABS: DIFFERENTIAL COMMENT 1
[2024-08-22] MEDS ORDERED: GABAPENTIN 400 MG CAPSULE ONE (14:42)
[2024-08-22] MEDS ORDERED: METOCLOPRAMIDE HCL 10 MG/2 ML VIAL ONE (14:43)
[2024-08-22 14:45] LABS: ALBUMIN 4.6 g/dL (3.4-5.0); BILIRUBIN,TOTAL 3.5 mg/dL (0.2-1.0); CALCIUM 9.9 mg/dL (8.5-10.1); CREATININE 1.3 mg/dL (0.6-1.3); POTASSIUM 4.6 mmol/L (3.5-5.1); TOTAL PROTEIN, SERUM 8.5 g/dL (6.4-8.2)
[2024-08-22] MEDS: METOCLOPRAMIDE HCL 10 MG/2 ML VIAL IV ONE (14:49)
[2024-08-22] MEDS: GABAPENTIN 400 MG CAPSULE PO ONE (14:49)
[2024-08-22] MEDS ORDERED: HUMALOG INSULIN PUMP (15:26)
[2024-08-22] MEDS ORDERED: diphenhydrAMINE 50 MG/1 ML VIAL ONE (15:34)
[2024-08-22] MEDS ORDERED: MORPHINE SULFATE 4 MG/1 ML DISP.SYRIN ONE (15:34)
[2024-08-22] MEDS: MORPHINE SULFATE 4 MG/1 ML DISP.SYRIN IV ONE (15:36)
[2024-08-22] MEDS: diphenhydrAMINE 50 MG/1 ML VIAL IV ONE (15:45)
[2024-08-22] MEDS: INSULIN REGULAR, HUMAN 1000 UNIT/10 ML VIAL SQ ONE (15:45)
== END 2024-08-22 15:45 | disposition home or self-care (01) ==
LOC: ER 13:18
DX: E86.0 Dehydration (principal); E11.65 Type 2 diabetes mellitus with hyperglycemia; F17.200 Nicotine dependence, unspecified, uncomplicated; G89.4 Chronic pain syndrome; Z79.4 Long term (current) use of insulin; Z79.899 Other long term (current) drug therapy; Z88.1 Allergy status to other antibiotic agents; Z90.49 Acquired absence of other specified parts of digestive tract; Z86.69 Personal history of other diseases of the nervous system and sense organs; Z87.19 Personal history of other diseases of the digestive system; Z91.018 Allergy to other foods
CPT/HCPCS: 99284; 96374; 96375; 96361; 80053; 82962 ×2; 85025; 36415; 83605; J1200; J2765; J2270; J7040; A4606; A4663

== ENCOUNTER 2024-09-24 14:15 | Inpatient (IN) | payer OTHER ==
[~2024-09-24] VITALS: Ht 170.2 cm; Wt 80.3 kg
[~2024-09-24 14:15] MED LIST changes: -CIPR250T4 PO; +HUMALOG INSULIN PUMP; -INSU100V36 SQ; -INSU100V7 SQ; -LIPA1CAP8 PO; -LOSA50TA39 PO; -METR250T36 PO
[2024-09-24] MEDS ORDERED: diphenhydrAMINE 50 MG/1 ML VIAL ONE (14:38)
[2024-09-24] MEDS ORDERED: METOCLOPRAMIDE HCL 10 MG/2 ML VIAL ONE (14:39)
[2024-09-24] MEDS ORDERED: HYDROMORPHONE 1 MG/1 ML DISP.SYRIN ONE (14:39)
[2024-09-24] MEDS: IV NORMAL SALINE 1000 ML BAG IV ONE (14:43)
[2024-09-24] MEDS: METOCLOPRAMIDE HCL 10 MG/2 ML VIAL IV ONE (14:44)
[2024-09-24] MEDS: HYDROMORPHONE 1 MG/1 ML DISP.SYRIN IV ONE ×2 (14:44→17:27)
[2024-09-24] MEDS: diphenhydrAMINE 50 MG/1 ML VIAL IV ONE (14:44)
[2024-09-24 14:55] LABS: PLATELET COUNT (AUTO) 178 K/uL (152-348); RED BLOOD CELL COUNT(AUTO) 5.61 MIL/uL (4.06-5.63); RED CELL DISTRIBUTION WIDTH 13.8 % (12.1-16.2); WHITE BLOOD COUNT (AUTO) 9.1 K/uL (3.6-10.2)
[2024-09-24 15:08] LABS: ASPARTATE AMINOTRANSFERASE 12.0 U/L (15-37); CREATININE 1.5 mg/dL (0.6-1.3); SODIUM SERUM 131.0 mmol/L (136-145); TOTAL PROTEIN, SERUM 7.8 g/dL (6.4-8.2); UREA NITROGEN, BLOOD 22.0 mg/dL (7-18)
[2024-09-24 15:46] LABS: ABG BASE EXCESS -11.2 mmol/L (-2.0-3.0); ABG HCO3 13.6 mmol/L (21.0-28.0); ABG PCO2 28.0 mmHg (35.0-48.0); ABG PH 7.304 (7.350-7.450); ABG PO2 98.1 mmHg (83.0-108.0); ABG SITE RIGHT RADIAL; ABG TOTAL HEMOGLOBIN 13.4 G/dL (13.5-17.5); AaDO2 97.0 mmHg; FIO2 21.0 %; FLOW, BLOOD GAS 0.00 L/min (0.00-30.00)
[2024-09-24] MEDS ORDERED: INSULIN REGULAR, HUMAN 1000 UNIT/10 ML VIAL ONE (15:56)
[2024-09-24] MEDS ORDERED: INSULIN REGULAR, HUMAN 100 UNIT in IV NORMAL SALINE 99 ML IV ONE (16:00)
[2024-09-24] MEDS: INSULIN REGULAR, HUMAN 100 UNITS in IV NORMAL SALINE 100 ML IV ONE (16:33)
[2024-09-24] MEDS: NORMAL SALINE IV ONE (16:34)
[2024-09-24] MEDS: HUMAN IV ONE (16:34)
[2024-09-24] MEDS: INSULIN REGULAR IV ONE (16:34)
[2024-09-24] MEDS ORDERED: ACETAMINOPHEN 325 MG TABLET PO PRN (18:15)
[2024-09-24] MEDS ORDERED: Medication Not On Formulary EA (Oxycodone Hcl/Acetaminophen (Oxycodone-Apap 10-325 Mg Ta PO PRN (18:15)
[2024-09-24 20:00] VITALS: BP 109/77; TEMP 97.9
[2024-09-24] MEDS: INSULIN REGULAR, HUMAN 100 UNIT in IV NORMAL SALINE 99 ML IV PRN (20:16)
[2024-09-24] MEDS: MORPHINE SULFATE 2 MG/1 ML DISP.SYRIN IV PRN (20:18)
[2024-09-24] MEDS: IV NS 1000 ML 1,000 ML IV PRN (20:19)
[2024-09-24 21:00] VITALS: O2SAT 99
[2024-09-24] MEDS ORDERED: DEXTROSE 50% 50 ML DISP.SYRIN IV PRN (21:45)
[2024-09-24 22:00] VITALS: BP 100/75; O2SAT 99
[2024-09-24] MEDS ORDERED: BLOOD SUGAR DIAGNOSTIC 1 EACH STRIP VI SCH (22:00)
[2024-09-24] MEDS: BLOOD SUGAR DIAGNOSTIC 1 EACH STRIP VI SCH (22:20)
[2024-09-24 23:00] VITALS: O2SAT 99
[2024-09-25] VITALS (16 sets, daily range): BP systolic 104–144; BP diastolic 79–98; TEMP 97.7–98.4; O2SAT 99–100
[2024-09-25 00:25] LABS: CREATININE 1.3 mg/dL (0.6-1.3); SODIUM SERUM 131.0 mmol/L (136-145); UREA NITROGEN, BLOOD 18.0 mg/dL (7-18)
[2024-09-25] MEDS ORDERED: DEXTROSE 50% 50 ML DISP.SYRIN IV PRN ×2 (01:15→09:45)
[2024-09-25] MEDS ORDERED: IV 0.9% SODIUM CHLORID+ 20 KCL 1,000 ML ONE (01:16)
[2024-09-25 01:20] LABS: *BILIRUBIN,URIN NEGATIVE (NEGATIVE); *BLOOD, URINE NEGATIVE (NEGATIVE); *CLARITY,URINE CLEAR (CLEAR); *COLOR,URINE YELLOW (YELLOW); *KETONES,URINE 2+ (NEGATIVE); *PROTEIN,URINE NEGATIVE (NEGATIVE); *UROBILINOGEN,URINE 0.2 E.U./dl (NORMAL); LEUKOCYTE ESTERASE ,URINE NEGATIVE (NEGATIVE); NITRITE, URINE NEGATIVE (NEGATIVE); UGLUCOSE 3+ (NEGATIVE)
[2024-09-25] MEDS: IV 0.9% SODIUM CHLORID+ 20 KCL 1,000 ML IV PRN (01:21)
[2024-09-25 01:27] LABS: *AMPHETAMINE, URINE NEGATIVE (NEGATIVE); *BARBITURATE, URINE NEGATIVE (NEGATIVE); *BENZODIAZEPINE, URINE NEGATIVE (NEGATIVE); *CANNABINOID, URINE POSITIVE (NEGATIVE); *COCCAINE, URINE NEGATIVE (NEGATIVE); *OPIATE, URINE POSITIVE (NEGATIVE); *PHENCYCLIDINE SCREEN,URINE NEGATIVE (NEGATIVE); FENTANYL, URINE NEGATIVE (NEGATIVE)
[2024-09-25] MEDS: BLOOD SUGAR DIAGNOSTIC 1 EACH STRIP VI SCH ×2 (03:59→11:31)
[2024-09-25] MEDS: INSULIN REGULAR, HUMAN 1000 UNIT/10 ML VIAL SQ SCH (04:00)
[2024-09-25 05:19] LABS: ASPARTATE AMINOTRANSFERASE 12.0 U/L (15-37); CREATININE 1.2 mg/dL (0.6-1.3); SODIUM SERUM 128.0 mmol/L (136-145); TOTAL PROTEIN, SERUM 6.4 g/dL (6.4-8.2); UREA NITROGEN, BLOOD 15.0 mg/dL (7-18)
[2024-09-25 05:21] LABS: PLATELET COUNT (AUTO) 136 K/uL (152-348); RED BLOOD CELL COUNT(AUTO) 4.77 MIL/uL (4.06-5.63); RED CELL DISTRIBUTION WIDTH 13.3 % (12.1-16.2); WHITE BLOOD COUNT (AUTO) 5.8 K/uL (3.6-10.2)
[2024-09-25] MEDS: PANTOPRAZOLE SODIUM 40 MG VIAL IV SCH (08:11)
[2024-09-25] MEDS ORDERED: IBUP-1953 PO (11:01)
[2024-09-25] MEDS ORDERED: AMYL1CAP56 PO (11:08)
[2024-09-25] MEDS: INSULIN REGULAR, HUMAN 1000 UNIT/10 ML VIAL SQ PRN (11:35)
[2024-09-25 14:19] LABS: CREATININE 1.2 mg/dL (0.6-1.3); SODIUM SERUM 129.0 mmol/L (136-145); UREA NITROGEN, BLOOD 12.0 mg/dL (7-18)
[2024-09-25] MEDS: INSULIN REGULAR, HUMAN 300 UNITS/3 ML VIAL SQ PRN (20:39)
[2024-09-25] MEDS: INSULIN GLARGINE,HUM 300 UNITS/3 ML CARTRIDGE SQ SCH (20:39)
[2024-09-25] MEDS: diphenhydrAMINE 25 MG CAP PO ONE (22:21)
[2024-09-26 05:43] LABS: PLATELET COUNT (AUTO) 92 K/uL (152-348); RED BLOOD CELL COUNT(AUTO) 4.09 MIL/uL (4.06-5.63); RED CELL DISTRIBUTION WIDTH 13.5 % (12.1-16.2); WHITE BLOOD COUNT (AUTO) 4.0 K/uL (3.6-10.2)
[2024-09-26 05:48] VITALS: BP 120/68; TEMP 97.4; O2SAT 100
[2024-09-26 06:19] LABS: ASPARTATE AMINOTRANSFERASE 5.0 U/L (15-37); CREATININE 1.2 mg/dL (0.6-1.3); SODIUM SERUM 130.0 mmol/L (136-145); TOTAL PROTEIN, SERUM 5.3 g/dL (6.4-8.2); UREA NITROGEN, BLOOD 10.0 mg/dL (7-18)
[2024-09-26] MEDS ORDERED: MAGNESIUM OXIDE 400 MG TABLET PO ONE (11:00)
[2024-09-26 11:11] VITALS: BP 118/79; TEMP 98.7; O2SAT 98
[2024-09-26] MEDS: NEUTRA PHOS PACKET PO ONE (11:30)
[2024-09-26] MEDS ORDERED: ESOM20CA PO (12:08)
[2024-09-26] MEDS: ONDANSETRON 4 MG/2 ML VIAL IV PRN (12:35)
[2024-09-26] MEDS: MAGNESIUM OXIDE 400 MG TABLET PO ONE (12:38)
[2024-09-27] MEDS ORDERED: PANTOPRAZOLE SODIUM 40 MG TABLET.DR PO SCH (07:00)
== END 2024-09-26 13:45 | disposition home or self-care (01) | DRG 420 ==
LOC: ER 14:15 → ICU IN 16:00 → UNDOADMIN 16:00 → CCU 19:31 → MEDSURG3 09-25 15:41
PROVIDERS: ADMIT Internal Medicine; ATTEND Internal Medicine
DX: E10.10 Type 1 diabetes mellitus with ketoacidosis without coma (principal); N17.0 Acute kidney failure with tubular necrosis; E10.42 Type 1 diabetes mellitus with diabetic polyneuropathy; K76.6 Portal hypertension; E87.1 Hypo-osmolality and hyponatremia; E86.0 Dehydration; G89.29 Other chronic pain; I86.8 Varicose veins of other specified sites; I86.4 Gastric varices; E66.9 Obesity, unspecified; Z68.27 Body mass index [BMI] 27.0-27.9, adult; Z90.49 Acquired absence of other specified parts of digestive tract; Z96.41 Presence of insulin pump (external) (internal); Z79.4 Long term (current) use of insulin; Z88.1 Allergy status to other antibiotic agents; E10.43 Type 1 diabetes mellitus with diabetic autonomic (poly)neuropathy; Z95.828 Presence of other vascular implants and grafts; K76.9 Liver disease, unspecified; F17.290 Nicotine dependence, other tobacco product, uncomplicated
CPT/HCPCS: 36415; 36600; 82533; 83605; 83690; 83735; 84100; 84443; 84550; 85025; 87086; A4606; A4663; G0378; J1171; J1200; J1815; J2270; J2405; J2470; J2765; J7040

== ENCOUNTER 2024-11-04 12:03 | Emergency (ER) | payer OTHER ==
[~2024-11-04] VITALS: Ht 170.2 cm; Wt 79.4 kg
[~2024-11-04 12:03] MED LIST changes: +AMYL1CAP56 PO; -DICY10CA13 PO; -DOCU100T2 PO; +ESOM20CA PO; -FAMO20TA8 PO; +IBUP-1953 PO; -METO10TA3 PO; -ONDA4TAB5 PO
[2024-11-04 12:06] VITALS: O2SAT 97
[2024-11-04 12:51] LABS: PLATELET COUNT (AUTO) 179 K/uL (152-348); RED BLOOD CELL COUNT(AUTO) 5.18 MIL/uL (4.06-5.63); RED CELL DISTRIBUTION WIDTH 14.5 % (12.1-16.2); WHITE BLOOD COUNT (AUTO) 7.2 K/uL (3.6-10.2)
[2024-11-04] MEDS: IV NORMAL SALINE 1000 ML BAG IV ONE (13:00)
[2024-11-04 13:04] LABS: ACETONE, SERUM SMALL (NEGATIVE)
[2024-11-04 13:08] LABS: ASPARTATE AMINOTRANSFERASE 5.0 U/L (15-37); CREATININE 1.2 mg/dL (0.6-1.3); SODIUM SERUM 129.0 mmol/L (136-145); TOTAL PROTEIN, SERUM 7.2 g/dL (6.4-8.2); UREA NITROGEN, BLOOD 16.0 mg/dL (7-18)
[2024-11-04] MEDS ORDERED: diphenhydrAMINE 50 MG/1 ML VIAL ONE ×3 (14:53→21:07)
[2024-11-04] MEDS ORDERED: ONDANSETRON 4 MG/2 ML VIAL ONE ×2 (14:53→16:11)
[2024-11-04] MEDS ORDERED: HYDROMORPHONE 1 MG/1 ML DISP.SYRIN ONE ×2 (14:54→16:11)
[2024-11-04] MEDS: diphenhydrAMINE 50 MG/1 ML VIAL IV ONE ×3 (15:02→21:11)
[2024-11-04] MEDS: HYDROMORPHONE 1 MG/1 ML DISP.SYRIN IV ONE ×2 (15:03→16:11)
[2024-11-04] MEDS: ONDANSETRON 4 MG/2 ML VIAL IV ONE ×2 (15:03→16:20)
[2024-11-04 15:55] LABS: ABG BASE EXCESS -11.7 mmol/L (-2.0-3.0); ABG HCO3 12.1 mmol/L (21.0-28.0); ABG PCO2 22.8 mmHg (35.0-48.0); ABG PH 7.344 (7.350-7.450); ABG PO2 105.4 mmHg (83.0-108.0); ABG SITE RIGHT RADIAL; ABG TOTAL HEMOGLOBIN 12.0 G/dL (13.5-17.5); AaDO2 97.7 mmHg; FIO2 21.0 %; FLOW, BLOOD GAS 0.00 L/min (0.00-30.00)
[2024-11-04] MEDS ORDERED: ACETAMINOPHEN 325 MG TABLET PO PRN (16:15)
[2024-11-04] MEDS ORDERED: REMEDY ESSENTIAL ZINC PASTE 113 GM TP PRN (16:15)
[2024-11-04] MEDS ORDERED: ONDANSETRON 4 MG/2 ML VIAL IV PRN (16:15)
[2024-11-04] MEDS ORDERED: INSULIN REGULAR, HUMAN 1000 UNIT/10 ML VIAL IV ONE (16:15)
[2024-11-04] MEDS ORDERED: MORPHINE SULFATE 2 MG/1 ML DISP.SYRIN IV PRN (16:15)
[2024-11-04] MEDS ORDERED: IV LACTATED RINGERS SOLUTION 1,000 ML IV PRN (16:15)
[2024-11-04 16:47] LABS: CREATININE 1.0 mg/dL (0.6-1.3); SODIUM SERUM 128.0 mmol/L (136-145); UREA NITROGEN, BLOOD 14.0 mg/dL (7-18)
[2024-11-04] MEDS ORDERED: LIPASE/PROTEASE/AMYLASE 4200 UNITS CAPSULE.DR PO SCH (18:00)
[2024-11-04 20:34] LABS: CREATININE 1.0 mg/dL (0.6-1.3); SODIUM SERUM 125.0 mmol/L (136-145); UREA NITROGEN, BLOOD 12.0 mg/dL (7-18)
[2024-11-04] MEDS ORDERED: MORPHINE SULFATE 4 MG/1 ML DISP.SYRIN ONE (21:08)
[2024-11-04] MEDS: MORPHINE SULFATE 4 MG/1 ML DISP.SYRIN IV ONE (21:12)
[2024-11-05] MEDS ORDERED: PANTOPRAZOLE SODIUM 40 MG TABLET.DR PO SCH (07:00)
== END 2024-11-04 21:38 | disposition short-term general hospital (02) ==
LOC: ER 12:03
DX: E11.10 Type 2 diabetes mellitus with ketoacidosis without coma (principal); F17.200 Nicotine dependence, unspecified, uncomplicated; G89.4 Chronic pain syndrome; R06.00 Dyspnea, unspecified; R10.9 Unspecified abdominal pain; R11.2 Nausea with vomiting, unspecified; Z79.4 Long term (current) use of insulin; Z79.891 Long term (current) use of opiate analgesic; Z88.1 Allergy status to other antibiotic agents; Z90.49 Acquired absence of other specified parts of digestive tract; Z91.018 Allergy to other foods
CPT/HCPCS: 99285; 74176; 96374; 96375; 71045; 80076; 82009; 82962; 83880; 83690; 83735 ×2; 84100 ×2; 85025; 84145; 85730; 87040 ×2; 84484 ×2; 93005; 96376; 83605; 36600; 80048 ×3; J1200 ×3; J2405 ×2; J1171 ×2; J2270; J7040 ×2; A4606; A4663

== ENCOUNTER 2024-11-18 11:20 | Inpatient (IN) | payer OTHER ==
[~2024-11-18] VITALS: Ht 170.2 cm; Wt 81.6 kg
[2024-11-18] VITALS (8 sets, daily range): BP systolic 125–160; BP diastolic 89–117; TEMP 97.2–98.1; O2SAT 97–99
[2024-11-18 12:01] LABS: PLATELET COUNT (AUTO) 182 K/uL (152-348); RED BLOOD CELL COUNT(AUTO) 5.76 MIL/uL (4.06-5.63); RED CELL DISTRIBUTION WIDTH 14.9 % (12.1-16.2); WHITE BLOOD COUNT (AUTO) 9.1 K/uL (3.6-10.2)
[2024-11-18 12:14] LABS: ASPARTATE AMINOTRANSFERASE < 5 U/L (15-37); TOTAL PROTEIN, SERUM 8.8 g/dL (6.4-8.2)
[2024-11-18 12:15] LABS: CREATININE 1.6 mg/dL (0.6-1.3); SODIUM SERUM 131.0 mmol/L (136-145); UREA NITROGEN, BLOOD 28.0 mg/dL (7-18)
[2024-11-18] MEDS: IV 0.9% SODIUM CHLORID+ 20 KCL 1,000 ML IV PRN (12:18)
[2024-11-18] MEDS ORDERED: ONDANSETRON 4 MG/2 ML VIAL ONE ×2 (12:57→14:47)
[2024-11-18] MEDS ORDERED: diphenhydrAMINE 50 MG/1 ML VIAL ONE ×2 (12:57→14:41)
[2024-11-18] MEDS ORDERED: HYDROMORPHONE 1 MG/1 ML DISP.SYRIN ONE ×2 (12:57→14:41)
[2024-11-18] MEDS: diphenhydrAMINE 50 MG/1 ML VIAL IV ONE ×2 (12:58→14:46)
[2024-11-18] MEDS: ONDANSETRON 4 MG/2 ML VIAL IV ONE ×2 (12:58→14:47)
[2024-11-18] MEDS: HYDROMORPHONE 1 MG/1 ML DISP.SYRIN IV ONE ×2 (12:59→14:46)
[2024-11-18] MEDS ORDERED: INSULIN REGULAR, HUMAN 100 UNIT in IV NORMAL SALINE 100 ML IV STA (13:08)
[2024-11-18 13:51] LABS: CREATININE 1.3 mg/dL (0.6-1.3); SODIUM SERUM 131.0 mmol/L (136-145); UREA NITROGEN, BLOOD 29.0 mg/dL (7-18)
[2024-11-18 14:09] LABS: ABG BASE EXCESS -6.3 mmol/L (-2.0-3.0); ABG HCO3 18.4 mmol/L (21.0-28.0); ABG PCO2 34.3 mmHg (35.0-48.0); ABG PH 7.348 (7.350-7.450); ABG PO2 86.1 mmHg (83.0-108.0); ABG SITE RIGHT RADIAL; ABG TOTAL HEMOGLOBIN 14.6 G/dL (13.5-17.5); AaDO2 96.2 mmHg; FIO2 21.0 %
[2024-11-18] MEDS ORDERED: ZOLPIDEM 5 MG TABLET PO PRN (15:15)
[2024-11-18] MEDS ORDERED: REMEDY ESSENTIAL ZINC PASTE 113 GM TP PRN (15:15)
[2024-11-18] MEDS ORDERED: MAGNESIUM HYDROXIDE 30 ML LIQUID UDC PO PRN (15:15)
[2024-11-18] MEDS ORDERED: ACETAMINOPHEN 325 MG TABLET PO PRN (15:15)
[2024-11-18] MEDS ORDERED: TIZANIDINE HCL 4 MG TABLET PO PRN (15:15)
[2024-11-18] MEDS ORDERED: Medication Not On Formulary EA (Oxycodone Hcl/Acetaminophen (Oxycodone-Apap 10-325 Mg Ta PO PRN (15:15)
[2024-11-18 15:32] LABS: *BILIRUBIN,URIN NEGATIVE (NEGATIVE); *BLOOD, URINE 1+ (NEGATIVE); *CLARITY,URINE CLEAR (CLEAR); *COLOR,URINE YELLOW (YELLOW); *KETONES,URINE 4+ (NEGATIVE); *PROTEIN,URINE 1+ (NEGATIVE); *UROBILINOGEN,URINE 0.2 E.U./dl (NORMAL); LEUKOCYTE ESTERASE ,URINE NEGATIVE (NEGATIVE); NITRITE, URINE NEGATIVE (NEGATIVE); UGLUCOSE 2+ (NEGATIVE)
[2024-11-18 15:40] LABS: SQUAMOUS EPITHELIAL CELL,UR FEW /HPF (NONE SEEN)
[2024-11-18 15:55] LABS: CREATININE 1.4 mg/dL (0.6-1.3); SODIUM SERUM 131.0 mmol/L (136-145); UREA NITROGEN, BLOOD 29.0 mg/dL (7-18)
[2024-11-18] MEDS: BLOOD SUGAR DIAGNOSTIC 1 EACH STRIP VI SCH ×2 (16:21→23:58)
[2024-11-18] MEDS: INSULIN REGULAR, HUMAN 100 UNIT in IV NORMAL SALINE 99 ML IV PRN (16:23)
[2024-11-18] MEDS: IV NS 1000 ML 1,000 ML IV PRN ×3 (16:26→23:04)
[2024-11-18] MEDS ORDERED: DOCU100C58 PO (17:25)
[2024-11-18] MEDS ORDERED: ESOM20CA37 PO (17:25)
[2024-11-18] MEDS: LIPASE/PROTEASE/AMYLASE 4200 UNITS CAPSULE.DR PO SCH (18:06)
[2024-11-18] MEDS: OXYCODONE/APAP 5-325 MG TABLET PO PRN (18:08)
[2024-11-18 18:27] LABS: CREATININE 1.3 mg/dL (0.6-1.3); SODIUM SERUM 131.0 mmol/L (136-145); UREA NITROGEN, BLOOD 27.0 mg/dL (7-18)
[2024-11-18] MEDS: diphenhydrAMINE 50 MG/1 ML VIAL IV PRN (20:08)
[2024-11-18] MEDS: HYDROMORPHONE 1 MG/1 ML DISP.SYRIN IV PRN (20:09)
[2024-11-18] MEDS ORDERED: IV D5W-0.45% NS +20 KCL 1,000 ML IV ONE (20:31)
[2024-11-18] MEDS: IV D5W-0.45% NS +20 KCL 1,000 ML IV PRN (20:39)
[2024-11-18 22:14] LABS: CREATININE 1.3 mg/dL (0.6-1.3); SODIUM SERUM 127.0 mmol/L (136-145); UREA NITROGEN, BLOOD 25.0 mg/dL (7-18)
[2024-11-18] MEDS ORDERED: IV D5W-0.45% NS +20 KCL 1,000 ML IV PRN (22:30)
[2024-11-18] MEDS ORDERED: DEXTROSE 50% 50 ML DISP.SYRIN IV PRN (22:30)
[2024-11-18] MEDS ORDERED: IV NS 1000 ML 1,000 ML IV PRN (23:00)
[2024-11-19] VITALS (13 sets, daily range): BP systolic 117–175; BP diastolic 87–96; TEMP 97.7–98.5; O2SAT 95–99
[2024-11-19] MEDS: INSULIN REGULAR, HUMAN 1000 UNIT/10 ML VIAL SQ PRN
[2024-11-19] MEDS: diphenhydrAMINE 50 MG/1 ML VIAL IV ONE (01:56)
[2024-11-19 02:19] LABS: CREATININE 1.3 mg/dL (0.6-1.3); SODIUM SERUM 127.0 mmol/L (136-145); UREA NITROGEN, BLOOD 23.0 mg/dL (7-18)
[2024-11-19 05:00] LABS: PLATELET COUNT (AUTO) 90 K/uL (152-348); RED BLOOD CELL COUNT(AUTO) 4.13 MIL/uL (4.06-5.63); RED CELL DISTRIBUTION WIDTH 14.4 % (12.1-16.2); WHITE BLOOD COUNT (AUTO) 4.2 K/uL (3.6-10.2)
[2024-11-19 05:14] LABS: ASPARTATE AMINOTRANSFERASE < 5 U/L (15-37); CREATININE 1.3 mg/dL (0.6-1.3); SODIUM SERUM 124 mmol/L (136-145); TOTAL PROTEIN, SERUM 5.9 g/dL (6.4-8.2); UREA NITROGEN, BLOOD 22 mg/dL (7-18)
[2024-11-19] MEDS: PANTOPRAZOLE SODIUM 40 MG TABLET.DR PO SCH (06:02)
[2024-11-19 06:17] LABS: LYMPHOCYTES % (MANUAL) 14 % (20-40); MONOCYTES % (MANUAL) 13 % (2-10); NEUTROPHILS % (MANUAL) 73 % (42-75)
[2024-11-19 06:25] LABS: PLATELET ESTIMATE DECREASED
[2024-11-19] MEDS ORDERED: PANTOPRAZOLE SODIUM 40 MG TABLET.DR PO SCH (07:00)
[2024-11-19] MEDS: ONDANSETRON 4 MG/2 ML VIAL IV PRN (09:06)
[2024-11-19] MEDS: POTASSIUM CHLORIDE 20 MEQ TAB.PRT.SR PO ONE (10:52)
[2024-11-19] MEDS: NEUTRA PHOS PACKET PO ONE (10:52)
[2024-11-19] MEDS: METOCLOPRAMIDE HCL 10 MG/2 ML VIAL IV SCH (15:11)
[2024-11-19] MEDS: POTASSIUM PHOSPHATE MM 7.5 MMOL in IV NORMAL SALINE 97.5 ML IV ONE (15:59)
[2024-11-19] MEDS: INSULIN GLARGINE,HUM 300 UNITS/3 ML CARTRIDGE SQ SCH (20:01)
[2024-11-19] MEDS ORDERED: INSULIN GLARGINE,HUM 300 UNITS/3 ML CARTRIDGE SQ SCH (21:00)
[2024-11-20 03:49] VITALS: BP 131/91; TEMP 98.1; O2SAT 99
[2024-11-20 04:47] LABS: *SODIUM RNDM,URINE 21 mmol/L (40-220)
[2024-11-20 06:59] VITALS: BP_SYST 115; BP_SYST 130; BP_DIAS 48; BP_DIAS 88; TEMP 97.7; TEMP 98.2; O2SAT 94; O2SAT 95
[2024-11-20 07:04] LABS: CREATININE 1.0 mg/dL (0.6-1.3); SODIUM SERUM 137.0 mmol/L (136-145); UREA NITROGEN, BLOOD 14.0 mg/dL (7-18)
[2024-11-20] MEDS ORDERED: Insulin Glargine,Hum SQ (11:05)
[2024-11-20 11:30] VITALS: BP 130/96; TEMP 97.8; O2SAT 95
== END 2024-11-20 12:30 | disposition home or self-care (01) | DRG 420 ==
LOC: ER 11:20 → ICU IN 14:54 → UNDOADMIN 14:54 → CCU 16:01 → MEDSURG3 11-20 00:03
PROVIDERS: ADMIT Nurse Practitioner Acute Care; ATTEND Nurse Practitioner Acute Care
DX: E10.10 Type 1 diabetes mellitus with ketoacidosis without coma (principal); N17.0 Acute kidney failure with tubular necrosis; K76.6 Portal hypertension; E87.1 Hypo-osmolality and hyponatremia; E86.1 Hypovolemia; E44.1 Mild protein-calorie malnutrition; E88.09 Other disorders of plasma-protein metabolism, not elsewhere classified; I85.00 Esophageal varices without bleeding; I86.4 Gastric varices; E10.43 Type 1 diabetes mellitus with diabetic autonomic (poly)neuropathy; K31.84 Gastroparesis; Z88.1 Allergy status to other antibiotic agents; Z90.411 Acquired partial absence of pancreas; Z90.49 Acquired absence of other specified parts of digestive tract; Z79.4 Long term (current) use of insulin; F17.210 Nicotine dependence, cigarettes, uncomplicated; G89.4 Chronic pain syndrome; Z71.6 Tobacco abuse counseling
CPT/HCPCS: 36415; 36600; 70030-TC; 71045; 82533; 82803; 83605; 83690; 83735; 84100; 84300; 84443; 84484; 84550; 85025; 87040; 87086; A4606; A4663; G0378; J1171; J1200; J1815; J2405; J2765; J3490; J7040

== ENCOUNTER 2024-12-22 17:46 | Inpatient (IN) | payer OTHER ==
[~2024-12-22] VITALS: Ht 170.2 cm; Wt 81.6 kg
[~2024-12-22 17:46] MED LIST changes: +DOCU100C58 PO; -ESOM20CA PO; +ESOM20CA37 PO; +Insulin Glargine,Hum SQ
[2024-12-22] MEDS: IV NORMAL SALINE 1000 ML BAG IV ONE (18:12)
[2024-12-22 18:17] LABS: PLATELET COUNT (AUTO) 303 K/uL (152-348); RED BLOOD CELL COUNT(AUTO) 6.31 MIL/uL (4.06-5.63); RED CELL DISTRIBUTION WIDTH 14.9 % (12.1-16.2); WHITE BLOOD COUNT (AUTO) 14.4 K/uL (3.6-10.2)
[2024-12-22 18:25] LABS: CREATININE 1.7 mg/dL (0.6-1.3); SODIUM SERUM 126 mmol/L (136-145); UREA NITROGEN, BLOOD 39 mg/dL (7-18)
[2024-12-22] MEDS ORDERED: METOCLOPRAMIDE HCL 10 MG/2 ML VIAL ONE (18:30)
[2024-12-22] MEDS ORDERED: INSULIN REGULAR, HUMAN 1000 UNIT/10 ML VIAL ONE (18:30)
[2024-12-22 18:31] LABS: ASPARTATE AMINOTRANSFERASE 7 U/L (15-37); TOTAL PROTEIN, SERUM 9.3 g/dL (6.4-8.2)
[2024-12-22 18:33] LABS: FLOW, VBG 0.00 L/min (0.00-30.00); FRACTIONATED INSPIRED OXYGEN-V 21.0 %; VBG AaDO2 97.6 mmHg; VBG BASE EXCESS -13.5 mmol/L (-2.0-3.0); VBG HCO3 10.4 mmol/L (22.0-29.0); VBG MetHb 0.3 % (0.5-1.5); VBG O2HB 96.4 % (0-79.0); VBG PCO2 21.5 mmHg (38.0-54.0); VBG PH 7.303 (7.320-7.430); VBG PO2 107.9 mmHg (23.0-48.0); VBG TOTAL HEMOGLOBIN 15.7 G/dL (13.5-17.5)
[2024-12-22] MEDS: INSULIN REGULAR, HUMAN 1000 UNIT/10 ML VIAL SQ ONE (18:34)
[2024-12-22 18:35] LABS: ETHANOL < 3 MG/DL (0-10)
[2024-12-22] MEDS: METOCLOPRAMIDE HCL 10 MG/2 ML VIAL IV ONE (18:35)
[2024-12-22 18:37] LABS: ACETONE, SERUM MODERATE (NEGATIVE)
[2024-12-22] MEDS ORDERED: PANTOPRAZOLE SODIUM 40 MG VIAL ONE (19:03)
[2024-12-22] MEDS ORDERED: HYDROMORPHONE 1 MG/1 ML DISP.SYRIN ONE (19:03)
[2024-12-22] MEDS: HYDROMORPHONE 1 MG/1 ML DISP.SYRIN IV ONE (19:10)
[2024-12-22] MEDS: PANTOPRAZOLE SODIUM IV 40 MG in IV DEXTROSE 5% 100 ML IV ONE (19:10)
[2024-12-22] MEDS ORDERED: IV 0.9% SODIUM CHLORID+ 20 KCL 1,000 ML IV PRN (19:15)
[2024-12-22] MEDS ORDERED: IV D5/ 0.9% NACL 1,000 ML IV PRN (19:15)
[2024-12-22 19:25] VITALS: BP 120/87
[2024-12-22 19:46] LABS: BAND % (MANUAL) 0 % (0-10); LYMPHOCYTES % (MANUAL) 10 % (20-40); MONOCYTES % (MANUAL) 3 % (2-10); NEUTROPHILS % (MANUAL) 87 % (42-75)
[2024-12-22 19:47] LABS: PLATELET ESTIMATE ADEQUATE
[2024-12-22] MEDS ORDERED: ACETAMINOPHEN 325 MG TABLET PO PRN (20:45)
[2024-12-22] MEDS ORDERED: MAGNESIUM HYDROXIDE 30 ML LIQUID UDC PO PRN (20:45)
[2024-12-22] MEDS ORDERED: REMEDY ESSENTIAL ZINC PASTE 113 GM TP PRN (20:45)
[2024-12-22] MEDS ORDERED: IV D5W-0.45% NS +20 KCL 1,000 ML IV PRN (20:45)
[2024-12-22] MEDS ORDERED: ONDANSETRON 4 MG/2 ML VIAL IV PRN (20:45)
[2024-12-22] MEDS: BLOOD SUGAR DIAGNOSTIC 1 EACH STRIP VI SCH (22:00)
[2024-12-22 22:20] VITALS: BP 141/102; TEMP 97.7; O2SAT 100
[2024-12-22 22:53] LABS: CREATININE 1.6 mg/dL (0.6-1.3); SODIUM SERUM 123.0 mmol/L (136-145); UREA NITROGEN, BLOOD 35.0 mg/dL (7-18)
[2024-12-22] MEDS: IV NS 1000 ML 1,000 ML IV ONE (22:59)
[2024-12-22 23:00] VITALS: O2SAT 100
[2024-12-22] MEDS: KETOROLAC TROMETHAMINE 15 MG INJ IVP PRN (23:40)
[2024-12-22] MEDS: ENOXAPARIN SODIUM 40 MG/0.4 ML DISP.SYRIN SQ SCH (23:41)
[2024-12-23] VITALS (27 sets, daily range): BP systolic 117–175; BP diastolic 78–113; TEMP 97.5–98.5; O2SAT 97–100
[2024-12-23] MEDS: diphenhydrAMINE 50 MG/1 ML VIAL IV PRN (00:19)
[2024-12-23] MEDS: INSULIN REGULAR, HUMAN 100 UNIT in IV NORMAL SALINE 100 ML IV PRN ×2 (01:07→08:03)
[2024-12-23] MEDS: IV D5W-0.45% NS +20 KCL 1,000 ML IV ONE ×3 (01:47→07:56)
[2024-12-23 05:22] LABS: PLATELET COUNT (AUTO) 140 K/uL (152-348); RED BLOOD CELL COUNT(AUTO) 5.02 MIL/uL (4.06-5.63); RED CELL DISTRIBUTION WIDTH 14.6 % (12.1-16.2); WHITE BLOOD COUNT (AUTO) 8.5 K/uL (3.6-10.2)
[2024-12-23 05:34] LABS: CREATININE 1.6 mg/dL (0.6-1.3); SODIUM SERUM 128.0 mmol/L (136-145); UREA NITROGEN, BLOOD 31.0 mg/dL (7-18)
[2024-12-23] MEDS: PANTOPRAZOLE SODIUM 40 MG VIAL IV SCH (08:59)
[2024-12-23] MEDS ORDERED: DEXTROSE 50% 50 ML DISP.SYRIN IV PRN (10:00)
[2024-12-23] MEDS: INSULIN GLARGINE,HUM 300 UNITS/3 ML CARTRIDGE SQ STA (10:41)
[2024-12-23] MEDS ORDERED: IV NORMAL SALINE 250 ML IV ONE (10:42)
[2024-12-23] MEDS ORDERED: IOHEXOL 300MG/ML 100 ML INFUS..BTL ONE (10:42)
[2024-12-23] MEDS ORDERED: SWABABLE VALVE TRANSFER SET EA MC ONE (10:43)
[2024-12-23] MEDS ORDERED: DOCUSATE SODIUM 100 MG CAPSULE PO PRN (11:30)
[2024-12-23] MEDS ORDERED: TIZANIDINE HCL 4 MG TABLET PO PRN (11:30)
[2024-12-23] MEDS ORDERED: Medication Not On Formulary EA (Oxycodone Hcl/Acetaminophen (Oxycodone-Apap 10-325 Mg Ta PO PRN (11:30)
[2024-12-23] MEDS ORDERED: IBUPROFEN 400 MG TABLET PO PRN (11:30)
[2024-12-23] MEDS: METOCLOPRAMIDE HCL 10 MG/2 ML VIAL IV SCH (11:36)
[2024-12-23] MEDS: BLOOD SUGAR DIAGNOSTIC 1 EACH STRIP VI SCH (11:36)
[2024-12-23] MEDS: INSULIN REGULAR, HUMAN 1000 UNIT/10 ML VIAL SQ PRN (11:42)
[2024-12-23 15:12] LABS: CREATININE 1.6 mg/dL (0.6-1.3); SODIUM SERUM 124.0 mmol/L (136-145); UREA NITROGEN, BLOOD 25.0 mg/dL (7-18)
[2024-12-23] MEDS: NEUTRA PHOS PACKET PO ONE (16:10)
[2024-12-23] MEDS: LIPASE/PROTEASE/AMYLASE 4200 UNITS CAPSULE.DR PO SCH (17:33)
[2024-12-23] MEDS: INSULIN REGULAR, HUMAN 300 UNITS/3 ML VIAL SQ PRN (21:04)
[2024-12-23 22:35] LABS: CREATININE 1.5 mg/dL (0.6-1.3); SODIUM SERUM 126.0 mmol/L (136-145); UREA NITROGEN, BLOOD 23.0 mg/dL (7-18)
[2024-12-23] MEDS: HYDROMORPHONE 1 MG/1 ML DISP.SYRIN IV ONE (22:35)
[2024-12-24 05:00] VITALS: BP 148/99; TEMP 97.9; O2SAT 100
[2024-12-24 05:00] LABS: PLATELET COUNT (AUTO) 89 K/uL (152-348); RED BLOOD CELL COUNT(AUTO) 4.56 MIL/uL (4.06-5.63); RED CELL DISTRIBUTION WIDTH 14.5 % (12.1-16.2); WHITE BLOOD COUNT (AUTO) 4.1 K/uL (3.6-10.2)
[2024-12-24 05:09] LABS: CREATININE 1.3 mg/dL (0.6-1.3); SODIUM SERUM 128.0 mmol/L (136-145); UREA NITROGEN, BLOOD 21.0 mg/dL (7-18)
[2024-12-24 08:00] VITALS: BP 129/92; TEMP 98.2; O2SAT 100
[2024-12-24] MEDS: OXYCODONE/APAP 5-325 MG TABLET PO PRN (08:00)
[2024-12-24] MEDS: INSULIN GLARGINE,HUM 300 UNITS/3 ML CARTRIDGE SQ SCH (09:08)
[2024-12-24] MEDS: NEUTRA PHOS PACKET PO ONE (11:09)
[2024-12-24] MEDS: CIPROFLOXACIN HCL 250 MG TABLET PO SCH (12:51)
[2024-12-24] MEDS: METRONIDAZOLE 500 MG TABLET PO SCH (15:20)
[2024-12-24 17:23] VITALS: BP 140/104; TEMP 97.7; O2SAT 98
[2024-12-24 19:00] VITALS: BP 139/94; TEMP 98.7; O2SAT 100
[2024-12-24] MEDS: IV NS 1000 ML 1,000 ML IV PRN (19:52)
[2024-12-24] MEDS: diphenhydrAMINE 50 MG/1 ML VIAL IV ONE (20:27)
[2024-12-24] MEDS ORDERED: INSULIN GLARGINE,HUM 300 UNITS/3 ML CARTRIDGE SQ SCH (21:00)
[2024-12-24 22:20] LABS: CREATININE 1.3 mg/dL (0.6-1.3); SODIUM SERUM 127.0 mmol/L (136-145); UREA NITROGEN, BLOOD 25.0 mg/dL (7-18)
[2024-12-25 04:00] VITALS: BP 148/100; TEMP 98.1; O2SAT 97
[2024-12-25] MEDS: PANTOPRAZOLE SODIUM 40 MG TABLET.DR PO SCH (06:16)
[2024-12-25 07:30] VITALS: BP 133/90; TEMP 98.5; O2SAT 98
[2024-12-25 07:32] LABS: PLATELET COUNT (AUTO) 68 K/uL (152-348); RED BLOOD CELL COUNT(AUTO) 4.09 MIL/uL (4.06-5.63); RED CELL DISTRIBUTION WIDTH 14.7 % (12.1-16.2); WHITE BLOOD COUNT (AUTO) 2.6 K/uL (3.6-10.2)
[2024-12-25 07:52] LABS: CREATININE 1.1 mg/dL (0.6-1.3); SODIUM SERUM 133.0 mmol/L (136-145); UREA NITROGEN, BLOOD 20.0 mg/dL (7-18)
[2024-12-25] MEDS ORDERED: INSU100V7 SQ (09:57)
[2024-12-25] MEDS ORDERED: METR500T PO (09:57)
[2024-12-25] MEDS ORDERED: CIPR-262 PO (09:57)
[2024-12-25 11:08] VITALS: BP 126/89; TEMP 97.8; O2SAT 99
== END 2024-12-25 11:30 | disposition home or self-care (01) | DRG 420 ==
LOC: ER 17:46 → ICU IN 21:29 → CCU 23:07 → MEDSURG3 12-24 13:10
PROVIDERS: ADMIT Student in an Organized Health Care Education/Training Program; ATTEND Student in an Organized Health Care Education/Training Program
DX: E13.10 Other specified diabetes mellitus with ketoacidosis without coma (principal); N17.0 Acute kidney failure with tubular necrosis; E87.1 Hypo-osmolality and hyponatremia; G89.4 Chronic pain syndrome; Z79.4 Long term (current) use of insulin; E13.40 Other specified diabetes mellitus with diabetic neuropathy, unspecified; F17.290 Nicotine dependence, other tobacco product, uncomplicated; T38.3X6A Underdosing of insulin and oral hypoglycemic [antidiabetic] drugs, initial encounter; Y92.039 Unspecified place in apartment as the place of occurrence of the external cause; K86.1 Other chronic pancreatitis; Z90.411 Acquired partial absence of pancreas; Z90.49 Acquired absence of other specified parts of digestive tract; Z91.128 Patient's intentional underdosing of medication regimen for other reason; Z88.1 Allergy status to other antibiotic agents; Z91.018 Allergy to other foods; K52.9 Noninfective gastroenteritis and colitis, unspecified; E86.1 Hypovolemia; F19.10 Other psychoactive substance abuse, uncomplicated; E89.1 Postprocedural hypoinsulinemia; E13.42 Other specified diabetes mellitus with diabetic polyneuropathy
CPT/HCPCS: 36415; 36600; 70030-TC; 71045; 83690; 83735; 84100; 84443; 84484; 85025; A4606; A4663; G0378; G0480; J1171; J1200; J1650; J1815; J1885; J2470; J2765; J7040; Q9967